=== PATIENT | male | born 1960 | race Two or more races ===

== ENCOUNTER 2024-11-26 05:53 | Emergency (ER) | payer MEDICAID, SELFPAY ==
[2024-11-26 05:54] VITALS: BMI 23.6
[2024-11-26 05:59] VITALS: BP 114/65; PULSE 70; RESP 18; TEMP 36.5; O2SAT 97
[2024-11-26 07:22] LABS: Collection Type, Urine Clean Catch; Squamous Epithelial Cell,Urine 0 /hpf (0-5)
[2024-11-26 07:33] LABS: Bilirubin,Urine Negative (Negative); Blood,Urine Negative (Negative); Clarity,Urine Clear (Clear/Hazy); Color,Urine Lt-Yellow (Lt Yel-Yel); Glucose, Urine 4+ (Negative); Ketones,Urine Negative (Negative); Leukocyte Esterase,Urine Negative (Negative); Nitrite,Urine Negative (Negative); PH,Urine 6.5 (5.0-7.0); Protein,Urine Negative (Neg - Trace); RBC,Urine < 1 /hpf (0-3); Specific Gravity,Urine 1.034 (1.001-1.035); Urobilinogen,Urine Negative mg/dL (0.0-1.0); WBC,Urine 1 /hpf (0-5)
--- NOTE | 2024-11-26 08:04 | EDNOTE_ITS ---
ED Skin Abcess FB-RME/HPI General Chief complaint: Skin/Abscess/Foreign Body Stated complaint: RASH ON GROIN AREA Time Seen by Provider: 11/26/24 06:10 Source: patient Arrival date/time: 11/26/24 05:53 The patient is a 64-year-old male who presents to the emergency department with complaints of irritation at the tip of the penis for the past 3 days. He denies dysuria, hematuria, or urethral discharge. He has no known history of sexually transmitted infections. Past medical history is significant for uncontrolled diabetes and hypertension. He denies fevers, chills, or systemic symptoms. Mode of arrival: ambulatory Limitations: no limitations Related Data Previous Rx's ?Medication ?Instructions ?Recorded insulin glargine 100 unit/mL (3 20 unit (0.2 mL) subcu t QAM #15 mL 07/06/21 mL) subcutaneous pen (Lantus Solostar U-100 Insulin) metformin 1,000 mg tablet 1,000 mg PO BID #60 tabs albuterol sulfate 90 mcg/actuation 1 puff inhalation Q ID PRN 07/22/23 aerosol inhaler shortness of breath or wheez ing #8.5 grams clotrimazole 1 % topical cream 1 applic topical BID 7 days #30 11/26/24 grams Allergies Allergy/AdvReac Type Severity Reaction Status Date / Time No Known Allergies Allergy Unverified 07/03/21 16:42 Review of Systems Review of Systems Systems Reviewed: All systems reviewed, normal except as documented Narrative Review of Systems: Gen: No fever, no chills, no weight loss EYES: No discharge, no visual changes, no pain HEENT: No ear pain, no congestion, no sore throat PULM: No shortness of breath, no cough, no congestion CV: No chest pain, no dyspnea on exertion, no palpitations GI: No nausea, no vomiting, no diarrhea, no pain, no constipation : No frequency, no urgency,? no dysuria, penis pain Musc/skel: No joint pain, no back pain Skin: No rash? Psyc: No hallucinations, no depression Heme/Lymph: No easy bleeding or bruising tendencies Neuro: No weakness, no headache ED Exam General Limitations: Present no limitations General appearance: Present alert and in no apparent distress Head Head exam: Present atraumatic Eye Eye exam: Present normal appearance, PERRL and EOMI ENT ENT exam: Present normal exam, normal oropharynx and mucous membranes moist Neck Neck exam: Present normal inspection, full ROM and trachea midline Chest Chest inspection: Present normal inspection and symmetric chest wall rise Respiratory Respiratory exam: Present normal lung sounds bilaterally Cardiovascular Cardiovascular exam: Present regular rate, normal rhythm and normal heart sounds Abdominal Exam Abdominal exam: Present soft and normal bowel sounds; Absent distention, tenderness or guarding Expanded Exam exam: Present balanitis and other (Erythema noted to the glans penis consistent with mild balanitis. No phimosis or paraphimosis observed. No ulcerations, discharge, or lesions noted. Mild tenderness to palpation.) Extremities Exam Extremities exam: Present normal inspection and full ROM Back Exam Back exam: Present normal inspection and full ROM Neurological Exam Neurological exam: Present alert, oriented X3 and CN II-XII intact Psychiatric Psychiatric exam: Present normal affect and normal mood Skin Skin exam: Present warm, dry, intact and normal color Course Quality Measures none Orders Category Date Time Status UA [Urinalysis] Stat Lab 11/26/24 06:48 Completed Vital Signs Vital signs: Vital Signs Temperature 97.7 F 11/26/24 05:59 Pulse Rate 70 11/26/24 05:59 Respiratory Rate 18 11/26/24 05:59 Blood Pressure 114/65 11/26/24 05:59 Pulse Oximetry (%) 97 11/26/24 05:59 Oxygen Delivery Method Room Air 11/26/24 05:59 Skin / Abscess / Foreign Body Patient data External records reviewed:: [facility] previous records Clinical information provided by:: patient Social determinants that could affect healthcare access:: none Patient has the following chronic illnesses:: no How is presenting disease/condition affected by chronic disease/condition?: no chronic disease Evaluation data The following diagnostics were reviewed and interpreted by me:: lab results Lab and/or radiology exams considered but not ordered:: no Interpretation Summary: ua negative for pyuria Medications / Prescriptions Medications or Prescriptions considered but not ordered:: no Medication administrations:: no Consultations Consultation(s) initiated? (list below): No Diagnosis Skin/Abscess Differential Diagnosis: viral exanthem, urticaria, cellulitis and contact dermatitis Most likely diagnosis given after review of the tests above:: Balanitis penis Admission Indicated Admission indicated?: not indicated Admission Request Was there a request for admission?: No Disposition Plan Disposition Plan: Discharge Discharge Attestation Discharge Attestation: The patient and all family members were given an opportunity to ask questions and understood the discharge instructions. Discharge instructions specifically effects, indications for sooner follow up or return to the emergency department, and the expected course of current diagnosis. Patient condition: Stable Discharge Plan Plan Patient Disposition: HOME (Self Care) Patient condition on transfer: Stable Prescriptions/Referrals Prescriptions/Med Rec: New clotrimazole 1 % cream 1 applic topical BID 7 Days Qty: 30 0RF No Action Lantus Solostar U-100 Insulin 100 unit/mL (3 mL) insulin pen 20 unit subcut QAM Qty: 15 0RF Rx Instructions: Please provide with corresponding needles and caps. metformin 1,000 mg tablet 1,000 mg PO BID Qty: 60 0RF albuterol sulfate 90 mcg/actuation HFA aerosol inhaler 1 puff inhalation QID PRN (Reason: shortness of breath or wheezing) Qty: 8.5 0RF Referrals: No Primary/Family,Physician [Primary Care Provider] - In 1 week Problem List Clinical Impression: Balanitis Patient/Caregiver Discharge Instructions Discharge Activity: activity as tolerated Education Materials: ED Balanitis Additional Instructions: Gently wash with warm water daily and pat dry?avoid harsh soaps or scrubbing. Medications: Use any prescribed creams as directed Avoid irritants: Do not use perfumed soaps, lotions, or powders on the area. Manage blood sugar: Keep diabetes under control, as high blood sugar can contribute to infections and delayed healing. Print Language: Georgian Stand Alone Forms: Sanam Award Info., Patient Portal Info Letter PA/MUSEUM EXHIBIT TECHNICIAN Supervising Physician PA/MUSEUM EXHIBIT TECHNICIAN Supervising Physician: dr soto
[2024-11-26 08:24] VITALS: BP 124/65; PULSE 65; RESP 16; TEMP 36.9; O2SAT 99
== END 2024-11-26 08:26 | disposition home or self-care (01) ==
PROVIDERS: Nurse Practitioner Primary Care; Emergency Provider Emergency Medicine
DX: N48.1 Balanitis (principal)
CPT/HCPCS: 81001; 99283

== ENCOUNTER 2025-05-13 20:08 | Emergency (ER) | payer MEDICAID, SELFPAY ==
[2025-05-13 20:09] VITALS: BMI 27.0
--- NOTE | 2025-05-13 20:22 | EKG_ITS ---
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
[2025-05-13 20:50] VITALS: BP 118/77; PULSE 75; RESP 18; TEMP 36.5; O2SAT 97
--- NOTE | 2025-05-13 20:54 | XR_ITS ---
Examination: CT abdomen with intravenous contrast CT pelvis with intravenous contrast 2-D coronal reconstructions 2-D sagittal reconstructions Date and time of exam:May 13, 2025, 1042 hrs. Indications: Left lower quadrant abdominal pain today CTDI: vol (mGy) 8.6 DLP: (mGycm) 257 Technique: Multiple axial sections of the abdomen and pelvis have been obtained. 64 slice high-resolution scanner used. 3 mm axial sections have been obtained, post intravenous injection 60 cc Isovue-370 2-D sagittal, coronal reconstructions obtained. Low dose protocols were performed. One or more of the following dose reduction techniques were used; automated exposure control, adjustment of the mA and/or KV according to patient size, use of iterative reconstruction technique. Findings: Mild fluid subcapsular to the liver No visualized liver or splenic lesion Gallstones No pancreatic or adrenal mass Minimal perinephric stranding, no renal or ureteral calculi, no hydronephrosis Tiny fat-containing umbilical hernia Normal appendix No bowel obstruction No diverticulitis Distended urinary bladder Significant prostatomegaly, transverse dimension 6 cm Fat-containing inguinal hernias Impression: Mild fluid subcapsular to liver, clinical correlation advised Cholelithiasis, negative for cholecystitis Minimal perinephric stranding No renal or ureteral calculi, no hydronephrosis Normal appendix No diverticulitis Significant prostatomegaly with distended urinary bladder
--- NOTE | 2025-05-13 20:55 | PD.EDADULT ---
ED General RME/HPI General Chief complaint: General Adult/Misc Complain Stated complaint: BODY ACHES, CHEST PRESSURE Time Seen by Provider: 05/13/25 20:53 Arrival date/time: 05/13/25 20:08 RME / HPI RME / HPI narrative: 64-year-old male patient with significant history of diabetes mellitus, came in for evaluation regarding not feeling well. Patient has been having bodyaches, not feeling well, associated with left lower abdominal pain getting worse, for the last 5 days. No vomiting no nausea no diarrhea no constipation. Denies any fever also. Patient denies any cough denies any sore throat. Denies any other complaints no medication was taken prior to ER visit. Related Data Previous Rx's ?Medication ?Instructions ?Recorded insulin glargine 100 unit/mL (3 20 unit (0.2 mL) subcut QAM #15 mL 07/06/21 mL) subcutaneous pen (Lantus Solostar U-100 Insulin) metformin 1,000 mg tablet 1,000 mg PO BID #60 tabs 07/06/21 albuterol sulfate 90 mcg/actuation 1 puff inhalation QID PRN 07/22/23 aerosol inhaler shortness of breath or wheezing #8.5 grams dicyclomine 20 mg tablet 20 mg PO QID PRN abdominal pain 05/13/25 #30 tabs pantoprazole 40 mg tablet,delayed 40 mg PO QDAY #20 tabs 05/13/25 release (Protonix) sodium chloride 1,000 mg soluble 1,000 mg PO QDAY #7 tabs 05/13/25 tablet tamsulosin 0.4 mg capsule (Flomax) 0.4 mg PO QDAY #30 caps 05/13/25 Allergies Allergy/AdvReac Type Severity Reaction Status Date / Time No Known Allergies Allergy Unverified 05/13/25 20:11 Review of Systems Review of Systems Narrative Review of Systems: Review of system reviewed and within normal limits except mentioned in HPI ED Exam Narrative Physical exam: VITAL SIGNS: Reviewed. GENERAL APPEARANCE: Alert and interactive, follows commands, no acute distress, HEAD AND FACE: Non-traumatic. ENT: PERRL, pink conjunctivitis, eyelid no trauma, Mucous membrane moist. NECK: Supple, nontender, no nuchal rigidity. CHEST: No tenderness, no crepitus, no paradoxical movement, no retractions. LUNGS: Clear, well ventilated, symmetric, no rales, no wheezing, no ronchi, no stridor, good breath sounds bilaterally. HEART: Regular rate, regular rhythm, no murmur, no gallops. ABDOMEN: Soft, positive bowel sounds, nondistended, no guarding, left lower quadrant tenderness, no rebound, no masses, RECTAL: Deferred. GENITAL: Deferred. NEUROLOGICAL: Gross motor function intact sensory function intact, Appropriate for age. MUSCULOSKELETAL: low back nontender, full range of motion. EXTREMITIES: Nontender, full range of motion. SKIN: Color pink, dry, no rash, no lacerations, no abrasions, no contusions. LYMPHATICS: Deferred. Course Quality Measures none Orders Category Date Time Status Bedside COVID-19 Antigen Test NOW Care 05/13/25 20:[address] Screening NOW Care 05/13/25 20:54 Active EKG (ED ONLY) *Do not use* NOW Care 05/13/25 20:22 Completed IV [Insert IV] NOW Care 05/13/25 22:[address] abdomen pelvis w con Stat Exams 05/13/25 20:54 Completed EKG (ED Only) Stat Exams 05/13/25 20:22 Draft CBC [CBC] Stat Lab 05/13/25 21:17 Completed CMP [Comprehensive Metabolic Panel] Stat Lab 05/13/25 21:17 Completed Lipase Stat Lab 05/13/25 21:17 Completed UA, C/S IF [Urinalysis, C/S if Indicated] Stat Lab 05/13/25 21:36 Completed Acetaminophen Tab [Tylenol ES Tab] Med 05/13/25 20:54 Discontinued 1,000 mg PO X1 ONE Sodium Chloride 0.9% 1000 ml [Ns] 1,000 ml Med 05/13/25 22:23 Active IV 999 mls/hr Vital Signs Vital signs: Vital Signs Temperature 97.7 F 05/13/25 20:50 Pulse Rate 75 05/13/25 20:50 Respiratory Rate 18 05/13/25 20:50 Blood Pressure 118/77 05/13/25 20:50 Pulse Oximetry (%) 97 05/13/25 20:50 Oxygen Delivery Method Room Air 05/13/25 20:50 Discharge Plan Plan Patient Disposition: HOME (Self Care) Discharge Disposition comment: Stable Prescriptions/Referrals Prescriptions/Med Rec: New dicyclomine 20 mg tablet 20 mg PO QID PRN (Reason: abdominal pain) Qty: 30 0RF pantoprazole [Protonix] 40 mg tablet,delayed release (DR/EC) 40 mg PO QDAY Qty: 20 0RF sodium chloride 1,000 mg tablet,soluble 1,000 mg PO QDAY Qty: 7 0RF tamsulosin [Flomax] 0.4 mg capsule 0.4 mg PO QDAY Qty: 30 0RF No Action Lantus Solostar U-100 Insulin 100 unit/mL (3 mL) insulin pen 20 unit subcut QAM Qty: 15 0RF Rx Instructions: Please provide with corresponding needles and caps. metformin 1,000 mg tablet 1,000 mg PO BID Qty: 60 0RF albuterol sulfate 90 mcg/actuation HFA aerosol inhaler 1 puff inhalation QID PRN (Reason: shortness of breath or wheezing) Qty: 8.5 0RF Referrals: Liliana Fuentes FNP [Primary Care Provider] - In 1 week Problem List Clinical Impression: Abdominal pain, Cholelithiasis, Hyponatremia, Enlarged prostate Patient/Caregiver Discharge Instructions Discharge Activity: activity as tolerated Education Materials: Abdominal Pain, What Are Gallstones Additional Instructions: Thank you for the opportunity for serving you today. You are stable for discharged . You are advised to: Follow-up with your PCP in 1 to 2 days Return to ED for worsening of symptoms Increase oral fluids Take medication as prescribed Your PCP to refer you to a general surgeon for further evaluation regarding your gallstone Please ask your PCP to refer you to a urologist regarding your prostate enlargement Print Language: Bahraini Stand Alone Forms: Sanam Award Info., Patient Portal Info Letter MDM Narrative MDM hospital course (for use when minimal MDM required): 64-year-old male patient with significant history of diabetes mellitus, came in for evaluation regarding not feeling well. Patient has been having bodyaches, not feeling well, associated with left lower abdominal pain getting worse, for the last 5 days. No vomiting no nausea no diarrhea no constipation. Denies any fever also. Patient denies any cough denies any sore throat. Denies any other complaints no medication was taken prior to ER visit. EKG showed sinus rhythm, ventricular rate of 73 bpm, no ST segment elevation or depression noted. CBC showed no leukocytosis. CMP is significant for a sodium of 125. Chloride of 90. Glucose [address] scan of the abdomen pelvis showed Mild fluid subcapsular to liver, clinical correlation advised Cholelithiasis, negative for cholecystitis Minimal perinephric stranding No renal or ureteral calculi, no hydronephrosis Normal appendix No diverticulitis Significant prostatomegaly with distended urinary bladder Patient is not having pain to the right upper quadrant, CT scan also showed mild fluid subscapular to the liver, clinically patient is not having any pain to that area. But however I advised the patient to closely follow-up with PCP or return to emergency room for worsening of symptoms. Patient agrees with the plan. Medication Administration(s) Medication Administration History Discontinued Medications Acetaminophen (Acetaminophen 500 Mg Tablet) 1,000 mg PO X1 ONE Stop: 05/13/25 20:55 Last Admin: 05/13/25 21:52 Dose: 1,000 mg Documented By: AVERY Sodium Chloride (Ns) 1,000 mls @ 999 mls/hr IV .Q1H1M ONE Stop: 05/13/25 23:23 Last Admin: 05/13/25 22:53 Dose: 999 mls/hr Documented By: IZABEL
[2025-05-13 21:21] LABS: Basophils # (Auto) 0.0 Thou/mm3 (0.0-0.2); Basophils % (Auto) 0 % (0-2.5); Eosinophils # (Auto) 0.1 Thou/mm3 (0.0-0.5); Eosinophils % (Auto) 1 % (0-10); Hematocrit 35.2 % (41.0-53.0); Hemoglobin 13.1 g/dL (13.5-16.0); Immature Granulocytes Auto 0.03 Thou/mm3 (0.00-0.00); Lymphocytes # (Auto) 3.3 Thou/mm3 (1.0-4.8); Lymphocytes % (Auto) 34 % (10-50); Mean Corpuscular HGB Conc 37.2 g/dl (31.0-37.0); Mean Corpuscular Hemoglobin 30.0 pg (25.0-35.0); Mean Corpuscular Volume 81 fL (80-100); Monocytes # (Auto) 0.9 Thou/mm3 (0.0-0.8); Monocytes % (Auto) 10 % (0-12); Neutrophils # (Auto) 5.1 Thou/mm3 (1.8-7.7); Neutrophils % (Auto) 54 % (37-80); Nucleated Red Blood Cell # 0.00 Thou/mm3 (0.00-0.00); Nucleated Red Blood Cell % 0 /100 WBC (0); Platelet Count 393 Thou/mm3 (140-440); RDW Standard Deviation 33.3 fL (35.1-43.9); Red Blood Count 4.37 Miln/mm3 (4.50-5.90); White Blood Count 9.5 Thou/mm3 (3.8-10.6)
[2025-05-13] MEDS: ACETAMINOPHEN 500 MG TABLET 1000 MG PO (21:52)
[2025-05-13 21:53] LABS: Alanine Aminotransferase 17 U/L (10-49); Albumin, Serum 4.5 gm/dL (3.4-4.8); Albumin/Globulin Ratio 2.0 (1.2-2.2); Alkaline Phosphatase 53 U/L (46-116); Anion Gap 10 (7-16); Aspartate Amino Transferase 18 U/L (0-34); BUN/Creatinine Ratio 7 Ratio (12-20); Bilirubin,Total 0.9 mg/dL (0.3-1.2); Blood Urea Nitrogen < 5 mg/dL (9-23); Calcium 9.3 mg/dL (8.3-10.6); Calcium (Corrected) 9.3 mg/dL (8.5-10.1); Carbon Dioxide 25.5 mMol/L (20.0-31.0); Chloride 90 mMol/L (98-107); Creatinine (Component) 0.7 mg/dL (0.6-1.3); Estimated Creatinine Clearance 109.4 mL/min (>60); Globulin 2.3 gm/dL (2.3-3.5); Glucose 170 mg/dL (74-106); Lipase 27 U/L (12-53); Osmolality,Calculated 252 (275-295); Potassium 3.4 mMol/L (3.4-5.1); Sodium 125 mMol/L (136-145); Total Protein 6.8 gm/dL (5.7-8.2); eGFR > 60 See Note
[2025-05-13 22:14] VITALS: BP 141/80; PULSE 72; RESP 17; TEMP 37; O2SAT 99
[2025-05-13 22:17] LABS: Collection Type, Urine Clean Catch
[2025-05-13 22:21] LABS: Bilirubin,Urine Negative (Negative); Blood,Urine Negative (Negative); Clarity,Urine Clear (Clear/Hazy); Color,Urine Colorless (Lt Yel-Yel); Culture Indicated,Urine Not Indicated; Glucose, Urine 2+ (Negative); Ketones,Urine Negative (Negative); Leukocyte Esterase,Urine Negative (Negative); Nitrite,Urine Negative (Negative); PH,Urine 6.5 (5.0-7.0); Protein,Urine Negative (Neg - Trace); RBC,Urine < 1 /hpf (0-3); Specific Gravity,Urine 1.005 (1.001-1.035); Squamous Epithelial Cell,Urine < 1 /hpf (0-5); Urobilinogen,Urine Negative mg/dL (0.0-1.0); WBC,Urine < 1 /hpf (0-5)
[2025-05-13] MEDS: SODIUM CHLORIDE 0.9% 1000 ML 1,000 ML 999 ML IV (22:53)
[2025-05-13 23:30] VITALS: BP 138/76; PULSE 82; RESP 16; TEMP 36.8; O2SAT 98
== END 2025-05-13 23:31 | disposition home or self-care (01) ==
PROVIDERS: Nurse Practitioner Family; Emergency Provider Emergency Medicine; PCP Nurse Practitioner Family
DX: K80.20 Calculus of gallbladder without cholecystitis without obstruction (principal); E87.1 Hypo-osmolality and hyponatremia; N40.0 Benign prostatic hyperplasia without lower urinary tract symptoms
CPT/HCPCS: 36415; 74177; 80053; 81001; 83690; 85025; 87811; 93005; 96360; 99284; A4649; J7030; Q9967; A9270

== ENCOUNTER 2025-05-16 11:33 | Observation (INO) | payer MEDICAID, SELFPAY ==
[2025-05-16] VITALS (12 sets, daily range): BP systolic 111–163; BP diastolic 67–90; PULSE 59–85; RESP 12–99; TEMP 36.7–37.1; O2SAT 93–99; BMI 30.5
--- NOTE | 2025-05-16 11:39 | XR_ITS ---
Examination: AP chest single view Technique one AP portable upright chest single view Date and time: May 16, 2025, 1206 hrs., Comparison July 22, 2023 Indications: Stroke protocol Findings: Mild enlargement left ventricle. No aspiration pneumonia. No pulmonary edema. Moderate osteopenia. Impression: Negative for aspiration pneumonia
--- NOTE | 2025-05-16 11:39 | XR_ITS ---
Examination: CTA carotids with intravenous contrast CTA brain, head with intravenous contrast. 2-D sagittal, coronal reconstructions. 3-D reconstructions. Exam date and time: May 16, 2025, 12:10 PM Indications: Stroke alert, onset focal neurologic deficit today CTDI: vol (mGy) 23 DLP: (mGycm) 468 Technique: Multiple CTA axial brain, head carotid images post intravenous contrast injection 75 cc, Isovue-370. 2-D sagittal, coronal reconstructions. 3-D reconstructions, 3-D post processing including vascular maximum intensity projection images. Low dose protocols were performed. One or more of the following dose reduction techniques were used; automated exposure control, adjustment of the mA and/or KV according to patient size, use of iterative reconstruction technique. Findings: No significant common carotid carotid bifurcation or internal carotid artery stenoses in the neck Dominant left vertebral artery in the neck with no critical stenoses Intracranial vertebral arteries basilar artery and posterior cerebral branches fill with no large vessel occlusions 50% stenosis P2 segment left posterior cerebral artery Juxtasellar supraclinoid portions internal carotid arteries fill No cerebral large vessel arterial occlusions involving M1 segments middle cerebral arteries middle cerebral artery trifurcation vessels or anterior cerebral arteries Impression: No significant neck arterial stenoses No cerebral large vessel arterial occlusions or thrombus
--- NOTE | 2025-05-16 11:39 | XR_ITS ---
Examination: CT brain head without contrast. 2-D sagittal coronal reconstructions Date and time of exam:May 16, 2025, 1149 hrs. Indications: Stroke alert, onset focal neurologic deficit today including left facial droop CTDI: vol (mGy):53.7 DLP: (mGycm):1071 Technique: Multiple CT axial sections of the brain have been obtained, 5 mm slice thickness. Contrast has not been administered. 2-D sagittal, coronal reconstructions have been obtained Low dose protocols were performed. One or more of the following dose reduction techniques were used; automated exposure control, adjustment of the mA and/or KV according to patient size, use of iterative reconstruction technique. Findings: No significant ventricular enlargement. Intra-axial or extra-axial hemorrhage density is not seen. No mass effect or midline shift Basal cisterns are not remarkable. Fourth ventricle is midline. Cranial vault intact. Significant left maxillary antral left ethmoid sinusitis Impression: Negative for acute hemorrhage, mass effect or midline shift
--- NOTE | 2025-05-16 11:39 | EKG_ITS ---
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
--- NOTE | 2025-05-16 11:40 | PD.EDADULT ---
ED General RME/HPI General Chief complaint: Neuro Symptoms/Deficit Stated complaint: RIGHT MOUTH DROOP AT 1055, NORMAL NOW.FACE HOT Time Seen by Provider: 05/16/25 11:38 Arrival date/time: 05/16/25 11:33 CC: Right sided facial drop droop lasting approximately 5 to 10 seconds. HPI onset at 10:55 AM. Then mostly spontaneously resolved. Still feeling hot the side of the face complaining of right sided mild blurred vision no prior history of similar events. History of diabetes hypertension. Related Data Previous Rx's ?Medication ?Instructions ?Recorded insulin glargine 100 unit/mL (3 20 unit (0.2 mL) subcut QAM #15 mL 07/06/21 mL) subcutaneous pen (Lantus Solostar U-100 Insulin) metformin 1,000 mg tablet 1,000 mg PO BID #60 tabs 07/06/21 dicyclomine 20 mg tablet 20 mg PO QID PRN abdominal pain 05/13/25 #30 tabs pantoprazole 40 mg tablet,delayed 40 mg PO QDAY #20 tabs 05/13/25 release (Protonix) sodium chloride 1,000 mg soluble 1,000 mg PO QDAY #7 tabs 05/13/25 tablet tamsulosin 0.4 mg capsule (Flomax) 0.4 mg PO QDAY #30 caps 05/13/25 Allergies Allergy/AdvReac Type Severity Reaction Status Date / Time No Known Allergies Allergy Unverified 05/16/25 11:39 Review of Systems Review of Systems Narrative Review of Systems: GEN: No fever, no chills, no weight loss EYES: No discharge, no visual changes, no pain HEENT: No ear pain, no congestion, no sore throat PULM: No shortness of breath, no cough, no congestion CV: No chest pain, no dyspnea on exertion, no palpitations GI: No nausea, no vomiting, no diarrhea, no pain, no constipation : No frequency, no urgency, no dysuria MUSC/SKEL: No joint pain, no back pain SKIN: No rash PSYCH: No hallucinations, no depression HEME/LYMPH: No easy bleeding or bruising tendencies NEURO: No weakness, no headache Past Medical History Past Medical History CARDIAC: Positive Cardiac Disorders; Negative Congestive Heart Failure RESPIRATORY: Negative Chronic Obstructive Pulmonary Disease (COPD) or Asthma GENITOURINARY: Negative Renal Disease ENDOCRINE: Positive Diabetes Mellitus Type 2; Negative Diabetes Mellitus Type 1 HEMATOLOGIC: Negative Sickle Cell Disease Social History SMOKING STATUS: Never smoker SUBSTANCE USE: does not use ED Exam Narrative Physical exam: [General: Obese not in any acute distress Head normocephalic HEENT: Within acceptable limits Neck is supple nontender Chest equal chest rise nontender to palpation Respiratory: Clear to auscultation no wheezes crackles or rubs CV: Rate rhythm is regular no murmurs rubs or clicks Abdomen is distended secondary to body habitus soft nontender no masses positive bowel sounds all 4 quadrants Back: No CVA tenderness no spinous process tenderness from cervical spine thoracic and lumbar spine Skin: Intact no petechiae rash induration ulceration or crepitus Extremities: Moving all extremity against resistance cap refill less than 2 seconds neurosensory intact Neuro: Awake alert oriented x3 Glascow coma 15 no focal deficits] cranial nerves II through XII grossly intact. NIH score of 0 Course Course Course Narrative: Review the laboratory results show no acute finding requires emergent or immediate intervention. Teleneurologist states patient should be admitted for TIA started on 300 of Plavix and admitted for workup. Patient is in agreement with this plan. Patient's case presented to resident for Dr. Tomlinson, who agrees to accept the patient for admission. Quality Measures none Orders Category Date Time Status Bedside Blood Glucose NOW Care 05/16/25 11:39 Active Bottle Tester NOW Care 05/16/25 11:39 Active Continuous Pulse Oximetry NOW Care 05/16/25 11:39 Completed EKG (ED ONLY) *Do not use* NOW Care 05/16/25 11:39 Completed In and Out Catheter NEEDED Care 05/16/25 11:39 Active Insert IV NOW Care 05/16/25 11:39 Active NIH Stroke Scale now Care 05/16/25 11:39 Active NPO NOW Care 05/16/25 11:39 Active Nurse Swallow Screen x1 Care 05/16/25 11:39 Active Consult to Neurology / Tele-Neurology Routine Cons 05/16/25 11:[address] angio stroke protocol Stat Exams 05/16/25 11:[address] stroke protocol Stat Exams 05/16/25 11:39 Completed EKG (ED Only) Stat Exams 05/16/25 11:39 Draft XR chest 1V portable Stat Exams 05/16/25 11:39 Taken CBC Stat Lab 05/16/25 11:43 Completed Comprehensive Metabolic Panel Stat Lab 05/16/25 11:43 Completed Drug Screen,Urine Stat Lab 05/16/25 12:21 Completed Magnesium Stat Lab 05/16/25 11:43 Completed Partial Thromboplastin Time Stat Lab 05/16/25 11:43 Completed Prothrombin Time with INR Stat Lab 05/16/25 11:43 Completed Troponin I Stat Lab 05/16/25 11:43 Completed Urinalysis, C/S if Indicated Stat Lab 05/16/25 12:20 Received Clopidogrel [Plavix] Med 05/16/25 11:58 Discontinued 300 mg PO X1 ONE Labetalol IV [Trandate IV] Med 05/16/25 11:39 Active 10 mg IVP Q15M PRN Ondansetron Inj [Zofran Inj] Med 05/16/25 11:39 Active 4 mg IVP Q4HR PRN Oxygen Delivery NOW RT 05/16/25 11:39 Active Vital Signs Vital signs: Vital Signs Temperature 98.4 F 05/16/25 11:42 Pulse Rate 85 05/16/25 11:42 Respiratory Rate 18 05/16/25 11:42 Blood Pressure 111/78 05/16/25 11:42 Pulse Oximetry (%) 98 05/16/25 11:42 Oxygen Delivery Method Room Air 05/16/25 11:42 Discharge Plan Plan Patient Disposition: Other Care w/in Hosp ([facility]) Patient condition on transfer: Stable Prescriptions/Referrals Prescriptions/Med Rec: No Action insulin glargine [Lantus Solostar U-100 Insulin] 100 unit/mL (3 mL) insulin pen 20 unit subcut QAM Qty: 15 0RF Rx Instructions: Please provide with corresponding needles and caps. metformin 1,000 mg tablet 1,000 mg PO BID Qty: 60 0RF dicyclomine 20 mg tablet 20 mg PO QID PRN (Reason: abdominal pain) Qty: 30 0RF pantoprazole [Protonix] 40 mg tablet,delayed release (DR/EC) 40 mg PO QDAY Qty: 20 0RF sodium chloride 1,000 mg tablet,soluble 1,000 mg PO QDAY Qty: 7 0RF tamsulosin [Flomax] 0.4 mg capsule 0.4 mg PO QDAY Qty: 30 0RF Problem List Clinical Impression: Brain TIA Patient/Caregiver Discharge Instructions Print Language: Samoan Stand Alone Forms: Sanam Award Info., Patient Portal Info Letter HOANG/PARRIS Supervising Physician ARYA Supervising Physician: Horace Montoya ENP [facility] Clinical Information Provided by: patient Medical Records reviewed [facility] Meds/Rx considered, not ordered None Labs/Rad/Tests considered, not ordered None Chronic Illness/Social Conditions Explain: Diabetes hypertension EKG Interpretation EKG #1: EKG Interpretation: EKG performed at 1227 shows a ventricular rate of 70 UT interval 168 QRS of 92 QTc of 406 is normal sinus rhythm. Labs Lab(s) Interpretation(s): CBC shows no acute leukocytosis anemia thrombocytopenia Coags within acceptable limits Sodium at 131 chloride of 97 glucose at 198. No other electrolyte imbalances no renal impairment no transaminitis or T. bili elevation. Troponin is negative Medication Administration(s) Medication Administration History Labetalol HCl (Labetalol Inj 5 Mg/Ml Vial 20 Ml) 10 mg IVP Q15M PRN PRN Reason: HYPER Stop: 05/16/25 13:40 Ondansetron HCl (Ondansetron Inj 2 Mg/Ml Inj 2 Ml) 4 mg IVP Q4HR PRN PRN Reason: NAUSEA OR VOMITING Stop: 06/15/25 11:38 Discontinued Medications Clopidogrel Bisulfate (Clopidogrel Bisulfate 75 Mg Tablet) 300 mg PO X1 ONE Stop: 05/16/25 11:59 Last Admin: 05/16/25 12:12 Dose: 300 mg Documented By: BY
--- NOTE | 2025-05-16 11:56 | PD.TNEURO ---
Tele Neuro Consultation Consultation Date 05/16/25 Most Recent Vital Signs Last Vital Signs Temp 98.4 F 05/16/25 11:42 Pulse 85 05/16/25 11:42 Resp 18 05/16/25 11:42 BP 111/78 05/16/25 11:42 Pulse Ox 98 05/16/25 11:42 O2 Del Method Room Air 05/16/25 11:42 Consultation Narrative [facility] Tele[facility]urology Consult Services Patient Name:???BRANDI ORTIZ Date of :???1960 Identification Number:??? Date of Service:???05/16/2025 11:40:14 Diagnosis:?G45.9 - Transient cerebral ischemic attack, unspecified Impression: ?64 y/o man with h/o HTN, DM and hyperlipidemia who presents to the ED with transient right facial droop at 1055. NIHSS 0 now. Admit for TIA evaluation Our recommendations are outlined below. Recommendations: ? Stroke/Telemetry Floor ? Neuro Checks ? Bedside Swallow Eval ? DVT Prophylaxis ? IV Fluids, Normal Saline ? Head of Bed 30 Degrees ? Euglycemia and Avoid Hyperthermia (PRN Acetaminophen) ? Bolus with Clopidogrel 300 mg bolus x1 and initiate dual antiplatelet therapy with Aspirin 81 mg daily and Clopidogrel 75 mg daily ? Antihypertensives PRN if Blood pressure is greater than 220/120 or there is a concern for End organ damage/contraindications for permissive HTN. If blood pressure is greater than 220/120 give labetalol PO or IV or Vasotec IV with a goal of 15% reduction in BP during the first 24 hours. Sign Out: ? Discussed with Emergency Department Provider Advanced Imaging: Advanced Imaging Deferred because: Advanced Imaging not obtained at this time. Reason: Case discussed with Dr. Montoya. NIHSS 0. Low suspicion for LVO given the clinical presentation and current clinical exam. Can reconsider advanced neuroimaging if patient's symptoms recur or worsen or develops new symptoms. Metrics: Last Known Well: 05/16/2025 10:55:00 Dispatch Time: 05/16/2025 11:40:14 Arrival Time: 05/16/2025 11:40:00 Initial Response Time: 05/16/2025 11:42:39Symptoms: transient right facial droop. Initial patient interaction: 05/16/2025 11:49:42 NIHSS Assessment Completed: 05/16/2025 11:53:34Patient is not a candidate for Thrombolytic. Thrombolytic Medical Decision: 05/16/2025 11:53:34Patient was not deemed candidate for Thrombolytic because of following reasons: Resolved symptoms . CT Head: I personally reviewed all the CT images that were available to me and it showed: No acute hemorrhage. No large territory acute ischemic stroke. Primary Provider Notified of Diagnostic Impression and Management Plan on: 05/16/2025 11:57:08 History of Present Illness:Patient is a 64 year old Male. Patient was brought by private transportation with symptoms of transient right facial droop. 64 y/o man with h/o HTN, DM and hyperlipidemia who presents to the ED with transient right facial droop at 1055. Emergent telestroke consult requested. Symptoms resolved after about a minute. bridge engineer used. On ASA. NIHSS 0. Patient states he feels normal at this time. CT brain reviewed and case discussed with the ED attending (Dr. Montoya). Past Medical History: Other PMH:? as per HPI Medications: No Anticoagulant use? Antiplatelet use:?Yes?ASA Reviewed EMR for current medications Allergies:? NKDA Social History: Smoking: No Alcohol Use: Former Drug Use: No Family History: There is no family history of premature cerebrovascular disease pertinent to this consultation ROS : 14 Points Review of Systems was performed and was negative except mentioned in HPI. Past Surgical History: There Is No Surgical History Contributory To Today?s Visit Examination: BP(111/78),?Pulse(85),?Blood Glucose(223) 1A: Level of Consciousness - Alert; keenly responsive?+ 0 1B: Ask Month and Age - Both Questions Right?+ 0 1C: Blink Eyes & Squeeze Hands - Performs Both Tasks?+ 0 2: Test Horizontal Extraocular Movements - Normal?+ 0 3: Test Visual Raza - No Visual Loss?+ 0 4: Test Facial Palsy (Use Grimace if Obtunded) - Normal symmetry?+ 0 5A: Test Left Arm Motor Drift - No Drift for 10 Seconds?+ 0 5B: Test Right Arm Motor Drift - No Drift for 10 Seconds?+ 0 6A: Test Left Leg Motor Drift - No Drift for 5 Seconds?+ 0 6B: Test Right Leg Motor Drift - No Drift for 5 Seconds?+ 0 7: Test Limb Ataxia (FNF/Heel-Nassar) - No Ataxia?+ 0 8: Test Sensation - Normal; No sensory loss?+ 0 9: Test Language/Aphasia - Normal; No aphasia?+ 0 10: Test Dysarthria - Normal?+ 0 11: Test Extinction/Inattention - No abnormality?+ 0 NIHSS Score:?0 NIHSS Free Text :?Gait - stands up independently and ambulates unassisted without any difficulty Pre-Morbid Modified Bethel Scale: 0 Points = No symptoms at all Spoke with :?Dr. Montoya This consult was conducted in real time using interactive audio and video technology. Patient was informed of the technology being used for this visit and agreed to proceed. Patient located in hospital and provider located at home/office setting. Patient is being evaluated for possible acute neurologic impairment and high probability of imminent or life-threatening deterioration. I spent total of 20 minutes providing care to this patient, including time for face to face visit via telemedicine, review of medical records, imaging studies and discussion of findings with providers, the patient and/or family. Dr Aaron Rolle [facility] For Inpatient follow-up with [facility] physician please call [facility] at . As we are not an outpatient service for any post hospital discharge needs please contact the hospital for assistance. If you have any questions for the [facility] physicians or need to reconsult for clinical or diagnostic changes please contact us via [facility] at . Signature :Renetta Rolle
--- NOTE | 2025-05-16 12:00 | PC.NURSE ---
PER DR. EVELYN HOLLINGSWORTH, TELENEUROLOGIST, PT'S NIHSS SCORE IS 0 AND IS NOT A CANDIDATE FOR THROMBOLYTICS AT THIS TIME.
[2025-05-16 12:05] LABS: Basophils # (Auto) 0.0 Thou/mm3 (0.0-0.2); Basophils % (Auto) 0 % (0-2.5); Eosinophils # (Auto) 0.1 Thou/mm3 (0.0-0.5); Eosinophils % (Auto) 1 % (0-10); Hematocrit 36.9 % (41.0-53.0); Hemoglobin 13.7 g/dL (13.5-16.0); Immature Granulocytes Auto 0.02 Thou/mm3 (0.00-0.00); Lymphocytes # (Auto) 2.8 Thou/mm3 (1.0-4.8); Lymphocytes % (Auto) 36 % (10-50); Mean Corpuscular HGB Conc 37.1 g/dl (31.0-37.0); Mean Corpuscular Hemoglobin 30.0 pg (25.0-35.0); Mean Corpuscular Volume 81 fL (80-100); Monocytes # (Auto) 0.6 Thou/mm3 (0.0-0.8); Monocytes % (Auto) 8 % (0-12); Neutrophils # (Auto) 4.2 Thou/mm3 (1.8-7.7); Neutrophils % (Auto) 54 % (37-80); Nucleated Red Blood Cell # 0.00 Thou/mm3 (0.00-0.00); Nucleated Red Blood Cell % 0 /100 WBC (0); Platelet Count 413 Thou/mm3 (140-440); RDW Standard Deviation 34.2 fL (35.1-43.9); Red Blood Count 4.56 Miln/mm3 (4.50-5.90); White Blood Count 7.7 Thou/mm3 (3.8-10.6)
[2025-05-16] MEDS: CLOPIDOGREL BISULFATE 75 MG TABLET 300 MG PO (12:12)
[2025-05-16 12:18] LABS: INR 1.0 (0.9-1.3); Partial Thromboplastin Time 26.2 Seconds (22.0-36.0); Prothrombin Time 10.4 Seconds (9.0-12.2)
[2025-05-16 12:22] LABS: Alanine Aminotransferase 17 U/L (10-49); Albumin, Serum 4.1 gm/dL (3.4-4.8); Albumin/Globulin Ratio 1.8 (1.2-2.2); Alkaline Phosphatase 68 U/L (46-116); Anion Gap 11 (7-16); Aspartate Amino Transferase 17 U/L (0-34); BUN/Creatinine Ratio 6 Ratio (12-20); Bilirubin,Total 0.6 mg/dL (0.3-1.2); Blood Urea Nitrogen < 5 mg/dL (9-23); Calcium 8.9 mg/dL (8.3-10.6); Calcium (Corrected) 8.9 mg/dL (8.5-10.1); Carbon Dioxide 22.8 mMol/L (20.0-31.0); Chloride 97 mMol/L (98-107); Creatinine (Component) 0.8 mg/dL (0.6-1.3); Estimated Creatinine Clearance 98.3 mL/min (>60); Globulin 2.3 gm/dL (2.3-3.5); Glucose 198 mg/dL (74-106); Magnesium 1.7 mg/dL (1.6-2.6); Osmolality,Calculated 265 (275-295); Potassium 3.8 mMol/L (3.4-5.1); Sodium 131 mMol/L (136-145); Total Protein 6.4 gm/dL (5.7-8.2); Troponin I < 0.020 ng/mL (0.0-0.045); eGFR > 60 See Note
[2025-05-16 12:28] LABS: Collection Type, Urine Clean Catch; Squamous Epithelial Cell,Urine 0 /hpf (0-5)
[2025-05-16 12:54] LABS: Bilirubin,Urine Negative (Negative); Blood,Urine Negative (Negative); Clarity,Urine Clear (Clear/Hazy); Color,Urine Colorless (Lt Yel-Yel); Culture Indicated,Urine Not Indicated; Glucose, Urine 2+ (Negative); Ketones,Urine Negative (Negative); Leukocyte Esterase,Urine Negative (Negative); Nitrite,Urine Negative (Negative); PH,Urine 6.5 (5.0-7.0); Protein,Urine Negative (Neg - Trace); RBC,Urine < 1 /hpf (0-3); Specific Gravity,Urine 1.011 (1.001-1.035); Urobilinogen,Urine Negative mg/dL (0.0-1.0); WBC,Urine < 1 /hpf (0-5)
[2025-05-16 13:05] LABS: Amphetamine/Methamp Scrn,U Negative (Negative); Barbiturate Screen,Urine Negative (Negative); Benzodiazepines Screen,Urine Negative (Negative); Benzoylecgonine Screen, Ur Negative (Negative); Fentanyl Screen,Urine Negative (Negative); Opiate Screen,Urine Positive (Negative); THC Screen,Urine Negative (Negative)
--- NOTE | 2025-05-16 13:58 | PC.NURSE ---
MD admiting DR blake , due to house supp call, patient needs to be upgraded to willie chávez Md to change order
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
[2025-05-16 15:21] LABS: Troponin I < 0.020 ng/mL (0.0-0.045)
--- NOTE | 2025-05-16 16:10 | ECHO_ITS ---
Transthoracic Echo Report Ht (in): 66 Wt (lb): 189 Exam Location: [facility] Status: Inpatient Optimization Manager: Kristina Candelaria Indications: Procedure Performed: BP: 150 / 94 HR: 57 MEASUREMENTS (Male / Female) Normal Values 2D ECHO LV Diastolic Diameter PLAX 4.9 cm 4.2 - 5.9 / 3.9 - 5.3 cm LV Systolic Diameter PLAX 3.0 cm IVS Diastolic Thickness 1.0 cm 0.6 - 1.0 / 0.6 - 0.9 cm LVPW Diastolic Thickness 1.0 cm 0.6 - 1.0 / 0.6 - 0.9 cm LV Relative Wall Thickness 0.4 LVOT Diameter 2.0 cm LA Volume Index 15.6 cm?/m? 16 - 28 cm?/m? Ascending Aorta Diameter 2.8 cm M-MODE AV Cusp Separation MM 1.7 cm DOPPLER AV Peak Velocity 155.0 cm/s AV Peak Gradient 9.6 mmHg AV Mean Gradient 4.0 mmHg AV Velocity Time Integral 30.1 cm LVOT Peak Velocity 111.0 cm/s LVOT Peak Gradient 4.9 mmHg LVOT Velocity Time Integral 21.3 cm LVOT Cardiac Index 1883.9 cm?/min?m? AV Area Cont Eq vti 2.2 cm? AV Area Cont Eq pk 2.2 cm? MV Area PHT 3.3 cm? Mitral E Point Velocity 53.1 cm/s Mitral A Point Velocity 62.0 cm/s Mitral E to A Ratio 0.9 LV E' Lateral Velocity 10.8 cm/s Mitral E to LV E' Lateral Ratio 4.9 LV E' Septal Velocity 5.1 cm/s Mitral E to LV E' Septal Ratio 10.4 TR Peak Velocity 167.7 cm/s TR Peak Gradient 11.2 mmHg PV Peak Velocity 118.0 cm/s PV Peak Gradient 5.6 mmHg FINDINGS Left Ventricle Normal left ventricular size, wall thickness, systolic function with no obvious regional wall motion abnormalities.There is grade I diastolic dysfunction of the left ventricle (impaired relaxation pattern). The ejection fraction is visually estimated at 60 %. Right Ventricle The right ventricle is normal in size and systolic function. Left Atrium The left atrium is normal by two-dimensional, color flow and Doppler imaging with no structural abnormalities, no thrombus formation present. Right Atrium The right atrium is normal by two-dimensional imaging, color flow and Doppler imaging with no structural abnormalities, no thrombus formation present. Atrial Septum No patent foramen ovale demonstrated by agitated saline injection. Aorta The aorta is normal by two-dimensional, color flow and Doppler interrogation. Mitral Valve The mitral valve is normal by two-dimensional, color flow and Doppler interrogation. Trace mitral regurgitation. Aortic Valve The aortic valve is trileaflet and normal by two-dimensional, color flow and Doppler interrogation. There is no significant aortic valve regurgitation. Tricuspid Valve The tricuspid valve is normal by two-dimensional, color flow and Doppler interrogation. There is trace tricuspid valve regurgitation. Pulmonic Valve The pulmonic valve is not well visualized. There is no significant pulmonic valve regurgitation. Vessels The pulmonary artery appears normal. The inferior vena cava pulmonary and hepatic veins appear normal. Pericardium There is a trivial pericardial effusion without cardiac tamponade. CONCLUSIONS Indication: bubble study Normal left ventricular size and function.Grade I diastolic dysfunction. Approximate ejection fraction is 55- 60%. Normal rightventricular size and function. Trace mitral and trace tricuspid regurgitation Negative bubble study No evidence of PFO or shunts Zulay Gomez (Electronically Signed) Final Date: 17 May 2025 17:56
[2025-05-16] MEDS: POLYETHYLENE GLYCOL 17 GM PACKET PO (17:47)
[2025-05-16] MEDS: INSULIN LISPRO (AdmeLOG) 1 UNIT/0.01 ML UNIT SC (20:15)
[2025-05-16] MEDS: ATORVASTATIN CALCIUM 20 MG TABLET 40 MG PO (20:22)
[2025-05-17] VITALS: BP 161/88; PULSE 69; PULSE 73; TEMP 36.8; O2SAT 98
--- NOTE | 2025-05-17 | XR_ITS ---
Examinations: MRI Brain without intravenous contrast. MRA brain without intravenous contrast. MRA carotids without intravenous contrast 3-D vascular reconstructions Date and time of exam: May 17, 2025, 0813 hours Indication: CT stroke alert May 16, 2025, onset focal neurologic deficit including right-sided facial droop blurred vision Technique: Multiple axial and sagittal images of the brain have been obtained MRA brain carotid images without contrast obtained, including 3-D postprocessing, vascular maximum intensity projection images Findings: Sellaturc[place] is not enlarged. The optic chiasm and infundibular stalk are not remarkable. Prepontine and interpeduncular cisterns are not enlarged. No localized enlargement of the medulla or v[place]. Fourth ventricle and cerebellar tonsils normal in position. Subacute hemorrhage is not seen. Fourth ventricle is midline. Mass in the cerebellopontine angle region is not evident. 7th and 8th nerve complexes exhibits symmetry. Globes are symmetrical with no retro-orbital mass. Increased white matter signal noted, scattered punctate foci increased signal in the white matter Diffusion-weighted images demonstrate no focus of restricted diffusion Mass-effect upon the ventricular system is not identified. Frontal ethmoid sinusitis MRA carotid images no significant carotid stenoses. MRA brain images no large vessel occlusions Impression: Negative for acute hemorrhage mass effect or midline shift No acute infarct Scattered punctate foci increased signal in the white matter, differential would include accelerated chronic microvascular white matter disease, demyelinating disease Recommend neurology consultation and correlation with clinical findings
[2025-05-17 00:16] VITALS: BP 161/88; PULSE 69; RESP 16; O2SAT 96
--- NOTE | 2025-05-17 01:42 | XR_ITS ---
Examination: Abdomen sonogram, Limited Date and time of exam: May 17, 2025, 0150 hrs. Indications: Upper abdominal pain today Technique: Real-time hernandez scale transabdominal sonographic images of the upper abdomen obtained. Findings: Cholelithiasis, normal gallbladder wall 0.2 cm Common bile duct 0.4 cm Pancreatic head 2.7 cm Liver 15.4 cm no focal liver lesions Normal hepatopedal portal venous flow Patent IVC Impression: Cholelithiasis, negative for cholecystitis
[2025-05-17 04:00] VITALS: BP 150/94; PULSE 62; PULSE 64; RESP 11; TEMP 36.8; O2SAT 96
[2025-05-17 05:39] LABS: Basophils # (Auto) 0.1 Thou/mm3 (0.0-0.2); Basophils % (Auto) 1 % (0-2.5); Eosinophils # (Auto) 0.2 Thou/mm3 (0.0-0.5); Eosinophils % (Auto) 2 % (0-10); Hematocrit 35.0 % (41.0-53.0); Hemoglobin 12.8 g/dL (13.5-16.0); Immature Granulocytes Auto 0.04 Thou/mm3 (0.00-0.00); Lymphocytes # (Auto) 3.3 Thou/mm3 (1.0-4.8); Lymphocytes % (Auto) 34 % (10-50); Mean Corpuscular HGB Conc 36.6 g/dl (31.0-37.0); Mean Corpuscular Hemoglobin 29.9 pg (25.0-35.0); Mean Corpuscular Volume 82 fL (80-100); Monocytes # (Auto) 0.8 Thou/mm3 (0.0-0.8); Monocytes % (Auto) 9 % (0-12); Neutrophils # (Auto) 5.3 Thou/mm3 (1.8-7.7); Neutrophils % (Auto) 55 % (37-80); Nucleated Red Blood Cell # 0.00 Thou/mm3 (0.00-0.00); Nucleated Red Blood Cell % 0 /100 WBC (0); Platelet Count 387 Thou/mm3 (140-440); RDW Standard Deviation 35.1 fL (35.1-43.9); Red Blood Count 4.28 Miln/mm3 (4.50-5.90); White Blood Count 9.8 Thou/mm3 (3.8-10.6)
[2025-05-17 05:48] LABS: Glucose Estimated Average 140 mg/dL (80-131); Hemoglobin A1C 6.5 % Hgb (4.8-6.0)
[2025-05-17 06:11] LABS: Alanine Aminotransferase 15 U/L (10-49); Albumin, Serum 3.9 gm/dL (3.4-4.8); Albumin/Globulin Ratio 1.9 (1.2-2.2); Alkaline Phosphatase 55 U/L (46-116); Anion Gap 9 (7-16); Aspartate Amino Transferase 15 U/L (0-34); BUN/Creatinine Ratio 6 Ratio (12-20); Bilirubin,Total 0.6 mg/dL (0.3-1.2); Blood Urea Nitrogen < 5 mg/dL (9-23); Calcium 9.0 mg/dL (8.3-10.6); Calcium (Corrected) 9.1 mg/dL (8.5-10.1); Carbon Dioxide 27.9 mMol/L (20.0-31.0); Cardiac Risk Estimate 3.1 RATIO (4.0-6.7); Chloride 98 mMol/L (98-107); Cholesterol 119 mg/dL (132-200); Creatinine (Component) 0.8 mg/dL (0.6-1.3); Estimated Creatinine Clearance 98.3 mL/min (>60); Globulin 2.1 gm/dL (2.3-3.5); Glucose 102 mg/dL (74-106); HDL Cholesterol 39 mg/dL (40-60); LDL Cholesterol,Calculated 58 mg/dL (0-130); Magnesium 1.9 mg/dL (1.6-2.6); Osmolality,Calculated 267 (275-295); Phosphorous 4.5 mg/dL (2.4-5.1); Potassium 3.5 mMol/L (3.4-5.1); Sodium 135 mMol/L (136-145); Total Protein 6.0 gm/dL (5.7-8.2); Triglycerides 109 mg/dL (30-150); eGFR > 60 See Note
[2025-05-17 08:00] VITALS: BP 150/72; PULSE 68; RESP 19; TEMP 36.8; O2SAT 96
--- NOTE | 2025-05-17 09:12 | PC.SS ---
Update: Patient is pending an MRI and Echo.
[2025-05-17] MEDS: TAMSULOSIN HCL 0.4 MG CAPSULE PO (09:13)
[2025-05-17] MEDS: ASPIRIN EC 81 MG TABEC PO (09:14)
[2025-05-17] MEDS: INSULIN DEGLUDEC 5 UNIT/0.05 ML (PER 5 UNITS) 20 UNIT SC (09:14)
[2025-05-17] MEDS: CLOPIDOGREL BISULFATE 75 MG TABLET PO (09:14)
--- NOTE | 2025-05-17 09:44 | PCS.ST ---
Speech referral for stroke r/o. No dysphagia. Tolerating diet. Independent communication skills. No formal speech services warranted at this time.
[2025-05-17] MEDS: GABAPENTIN 300 MG CAPSULE PO (11:47)
[2025-05-17 12:00] VITALS: BP 144/80; PULSE 66; RESP 18; TEMP 36.9; O2SAT 98
--- NOTE | 2025-05-17 13:17 | PC.SS ---
COOPERATIVE EXTENSION AGENT conducted bedside contact with the patient conduct initial assessment and to discuss discharge planning.? COOPERATIVE EXTENSION AGENT utilized sailing instructor to assist with discussion.? Patient is primarily a Slovenian speaker. ?Patient confirmed demographic information.? Patient resides at home with son, Brent Acevedo .? Patient does not utilize DME to assist with ambulation.? Patient does not utilize home oxygen.? Patient describes the ability to complete ADL?s independently.? Patient identified son, Brent Acevedo; as medical surrogate decision maker.? Patient?s PCP is Liliana Fuentes.? Patient does not participate with dialysis.? Patient does not possess any specialty providers.? Patient utilizes [email or web address], [email or web address]; for medication services.? Plan is for the patient to return home at the time of discharge.? Physical therapy recommending outpatient PT.? Per PT, patient will require referral submittal from PCP.? COOPERATIVE EXTENSION AGENT reminded patient of need to request outpatient PT referral from PCP at follow up appointment.? Patient acknowledged need to obtain PT referral from PCP.? Family will provide transportation on behalf of the patient.? No further discharge needs identified by the patient.? No further intervention required at this time, social service agency director will be available to address any further concerns.? Next of Kin: Brent Acevedo D/C Plan: Home
--- NOTE | 2025-05-17 13:41 | PC.PT ---
PT eval only. Patient was xI with bed mobility, transfers, and ambulation. Patient is safe to ambulate to the bathroom and in the halls with 1 family member. RN made aware.
--- NOTE | 2025-05-17 14:22 | PC.SS ---
Rounding Note: Neurology recommendations are pending. Plan is to possibly d/c today.
[2025-05-17 16:00] VITALS: BP 133/66; PULSE 78; PULSE 99; RESP 18; TEMP 36.6; O2SAT 98
--- NOTE | 2025-05-17 17:24 | PD.RESDS ---
Planned Discharge Date 05/17/25 DS: Providers Provider Date of admission: 05/16/25 13:48 Primary care physician: PARRIS Gentile Admitting Provider: Melody Tomlinson MD Attending Provider on Admission: Melody Tomlinson MD Consults: 05/16/25 11:39 Consult to Neurology / Tele-Neurology Routine Comment: Consulting Provider: [facility] 05/16/25 13:58 Consult to Neurology / Tele-Neurology Stat Comment: Consulting Provider: Nathan Willis 05/16/25 14:10 Referral Physical Therapy Routine Comment: Physician Instructions: Attending Provider on DC: Reynaldo Sofia MD Discharging Provider: Reynaldo Sofia MD DS: Diagnosis Problem List Completed Was Problem List Reviewed/Reconciled?: Yes Hospital Course Hospital Course Hospital course: 64-year-old male with past medical history of alcohol use disorder, HTN, HLD, and diabetes, presented to the hospital on 05/16/2025 due to right facial droop. Patient noted that this morning he could not move right side of his face, felt headache, hot flashes, and tingling all over his body. In the ED, patient was normotensive, regular heart rate, regular respiratory rate, afebrile satting 98 on room air. Stroke alert was initiated in the ED with teleneurology consultation, NIH score was 0. Labs are pertinent for mild hyponatremia, UA was negative for any signs of infection but U tox positive for opioids. Chest x-ray showed mild lodgment of the left ventricle, no aspiration pneumonia, no pulmonary edema but moderate osteopenia. CT head was negative and CT of the head and neck was also negative. Brain MRI did not show any acute infarct but there was scattered punctate foci with increased signal in the white matter. Neurology was consulted and recommended continuing aspirin and statin and to follow-up outpatient. Patient also reported lower extremity pain with tingling sensation likely secondary to neuropathy from diabetes; moreover, patient will be discharged stable with the following strict instructions. Please take Aspirin 81mg by mouth daily and atorvastatin 40mg tablet by mouth daily for TIA Take Percocet 5-325mg as needed up to three times a day for neuropathy - follow-up with PCP for pain management Please follow-up with Dr. Willis (Neurology) within 1-2 weeks after discharge Please follow-up with your PCP within 1 week of discharge or follow-up at the [facility] [address] [place] [address] Ask your PCP to refer you to a therapist for depressive mood and continue anti-depressant as prescribed If your symptoms worsen or if you develop new chest pain, shortness of breath, dizziness or loss of consciousness - please come back to the ED immediately. Hospital Diagnosis: #TIA #Cholelithiasis #Prostamegaly #Non-insulin dependent type 2 diabetes #Diabetic Neuropathy #Hyperlipidemia Reynaldo Sofia DO PGY-2 Internal Medicine - [facility] Status at Discharge Overall status at discharge: patient is progressing back to baseline Time Spent with Patient Time attestation: Total time spent providing and/or coordinating discharge services: 45 min Time spent: Greater than 30 minutes Exam Vital Signs Temp Pulse Resp BP Pulse Ox O2 Del Method 98 F 99 18 133/66 H 98 Room Air 05/17/25 16:00 05/17/25 16:00 05/17/25 16:00 05/17/25 16:00 05/17/25 16:00 05/17/25 16:00 Narrative Exam General: No acute distress, well nourished, AAO x3 Eye: Normal conjunctiva, no scleral icterus HENT: Normocephalic, atraumatic, hearing intact to conversation at normal volume, moist oral mucosa Neck: Supple, non-tender, no JVD, no lymphadenopathy Lungs: Non-labored respirations, symmetric chest rise, Clear to auscultate bilaterally, No wheezing, rhonchi, crackles Heart: Peripheral pulses intact bilaterally, Regular Rate and Rhythm. Abdomen: Soft, non-distended, non-tender, no palpable masses Musculoskeletal: No cyanosis or edema, No visible joint swelling Skin: Skin is warm, dry, no rashes or lesions. Psychiatric: Cooperative, appropriate mood and affect, Awake and alert, not agitated Neuro: Cranial nerves II-XII grossly intact. Strength 4/5 throughout. Sensations intact to light touch. Discharge Plan Plan Patient Disposition: HOME (Self Care) Patient condition on transfer: Stable Care Plan Goals: Please take Aspirin 81mg by mouth daily and atorvastatin 40mg tablet by mouth daily for TIA Take Percocet 5-325mg as needed up to three times a day for neuropathy - follow-up with PCP for pain management Please follow-up with Dr. Willis (Neurology) within 1-2 weeks after discharge Please follow-up with your PCP within 1 week of discharge or follow-up at the [place] [address] [place], [place] [id number] Ask your PCP to refer you to a therapist for depressive mood and continue anti-depressant as prescribed If your symptoms worsen or if you develop new chest pain, shortness of breath, dizziness or loss of consciousness - please come back to the ED immediately. Prescriptions/Referrals Prescriptions/Med Rec: New aspirin 81 mg Tablet,Delayed Release (Dr/Ec) 81 mg PO QDAY 30 Days Qty: 30 0RF atorvastatin [Lipitor] 40 mg tablet 40 mg PO HS 30 Days Qty: 30 0RF oxycodone-acetaminophen 5-325 mg tablet 1 tab PO TID MDD 15mg oxycodone PRN (Reason: pain) 3 Days Qty: 9 0RF Continued insulin glargine [Lantus Solostar U-100 Insulin] 100 unit/mL (3 mL) insulin pen 20 unit subcut QAM Qty: 15 0RF Rx Instructions: Please provide with corresponding needles and caps. metformin 1,000 mg tablet 1,000 mg PO BID Qty: 60 0RF dicyclomine 20 mg tablet 20 mg PO QID PRN (Reason: abdominal pain) Qty: 30 0RF pantoprazole [Protonix] 40 mg tablet,delayed release (DR/EC) 40 mg PO QDAY Qty: 20 0RF tamsulosin [Flomax] 0.4 mg capsule 0.4 mg PO QDAY Qty: 30 0RF Discontinued sodium chloride 1,000 mg tablet,soluble 1,000 mg PO QDAY Qty: 7 0RF Referrals: Liliana Fuentes FNP [Primary Care Provider] Nathan Willis MD [Physician, Neurology] Patient/Caregiver Discharge Instructions Education Materials: What Are Gallstones, What Is a TIA?, Benign Prostatic Hyperplasia Print Language: Mongolian Stand Alone Forms: Sanam Award Info., Patient Portal Info Letter Discharge Order Discharge Orders: Discharge (Routine); Ordered 05/17/25 Ordered By: Reynaldo Sofia Quality Discharge Quality Measures VTE prophylaxis Attestestation Attestation I attest that I was physically present for the evaluation, physical examination, lab and imaging review of the patient with the residents. I discussed the case with the residents and agree with the findings and plans of care as documented above. Melody Tomlinson MD
[2025-05-17] MEDS: INSULIN LISPRO (AdmeLOG) 1 UNIT/0.01 ML UNIT SC (17:27)
--- NOTE | 2025-05-17 17:47 | PD.RESPRO ---
Documentation for date of: 05/17/25 Subjective Subjective Interval history: Patient examined at bedside. Vitals are stable, glucose 102 this morning, A1c 6.5. No residual deficits noted on physical exam. MRI was negative for ischemic changes or hemorrhage. Echo is pending. Patient should continue aspirin 81 mg daily and atorvastatin 40 mg daily as treatment of TIA. Exam Vital Signs Temp Pulse Resp BP Pulse Ox O2 Del Method 98 F 99 18 133/66 H 98 Room Air 05/17/25 16:00 05/17/25 16:00 05/17/25 16:00 05/17/25 16:00 05/17/25 16:00 05/17/25 16:00 Narrative Exam General: No acute distress, well nourished Eye: Normal conjunctiva, no scleral icterus HENT: Normocephalic, atraumatic, hearing intact to conversation at normal volume, moist oral mucosa Neck: Supple, non-tender, no JVD, no lymphadenopathy Lungs: Non-labored respirations, symmetric chest rise, Clear to auscultate bilaterally, No wheezing, rhonchi, crackles Heart: Peripheral pulses intact bilaterally, Regular Rate and Rhythm. Abdomen: Soft, non-distended, non-tender, no palpable masses Musculoskeletal: No cyanosis or edema, No visible joint swelling Skin: Skin is warm, dry, no rashes or lesions. Psychiatric: Cooperative, appropriate mood and affect, Awake and alert, not agitated Neuro: Cranial nerves II-XII grossly intact. Strength 5/5 throughout. Sensations intact to light touch. No residual deficits noted on exam. Objective Labs 05/17/25 04:33 05/17/25 04:33 Labs: Laboratory Results - last 24 hr 05/17/25 04:33 WBC 9.8 RBC 4.28 L Hgb 12.8 L Hct 35.0 L MCV 82 MCH 29.9 MCHC 36.6 RDW Std Deviation 35.1 Plt Count 387 Neut % (Auto) 55 Lymph % (Auto) 34 Ows[place] % (Auto) 9 Eos % (Auto) 2 Baso % (Auto) 1 Neut # (Auto) 5.3 Lymph # (Auto) 3.3 [place] # (Auto) 0.8 Eos # (Auto) 0.2 Baso # (Auto) 0.1 Immature Gran # (Auto) 0.04 H Absolute Nucleated RBC 0.00 Immature Gran % 0 Nucleated RBC % 0 Sodium 135 L Potassium 3.5 Chloride 98 Carbon Dioxide 27.9 Anion Gap 9 BUN < 5 L Creatinine 0.8 Estim Creat Clear Calc 98.3 eGFR > 60 BUN/Creatinine Ratio 6 L Glucose [address] Glu mg/dL 140 H Hemoglobin A1c 6.5 H Calculated Osmolality 267 L Calcium 9.0 Corrected Calcium 9.1 Phosphorus 4.5 Magnesium 1.9 Total Bilirubin 0.6 AST 15 ALT 15 Alkaline Phosphatase 55 Total Protein 6.0 Albumin 3.9 Globulin 2.1 L Albumin/Globulin Ratio 1.9 Triglycerides 109 Cholesterol 119 L LDL Cholesterol, Calc 58 HDL Cholesterol 39 L Cholesterol/HDL Ratio 3.1 L Quality Measures Quality Measures VTE prophylaxis Assessment & Plan Assessment Current Active Medications: Generic Name Dose Route Start Last Admin Trade Name Freq PRN Reason Stop Dose Admin Acetaminophen 650 mg 05/16/25 13:47 Acetaminophen 325 Mg Tablet PO 06/15/25 13:46 Q6H PRN Fever >101.5 Acetaminophen 650 mg 05/16/25 17:17 Acetaminophen 325 Mg Tablet PO 06/15/25 13:46 Q6H PRN PAIN SCALE 1-3 (mild Al Hydrox/Mg Hydrox/Simethicone 30 ml 05/16/25 13:47 Mg Hyd/Al Hyd/[place] (Maalox Reg) Susp 30 Ml Udc PO 06/15/25 13:46 Q6H PRN Indigestion Aspirin 81 mg 05/17/25 09:00 05/17/25 09:14 Aspirin Ec 81 Mg Tabec PO 06/16/25 08:59 81 mg QDAY SIRIA Administration Atorvastatin Calcium 40 mg 05/16/25 21:00 05/16/25 20:22 Atorvastatin Calcium 20 Mg Tablet PO 06/15/25 20:59 40 mg HS SIRIA Administration Clopidogrel Bisulfate 75 mg 05/17/25 09:00 05/17/25 09:14 Clopidogrel Bisulfate 75 Mg Tablet PO 06/16/25 08:59 75 mg QDAY SIRIA Administration Dextrose 25 ml 05/16/25 20:40 Dextrose 50%-Water Inj 50 Ml Syringe IV 06/15/25 20:39 Q15MIN PRN BG 50-70 responsive npo pt Dextrose 50 ml 05/16/25 20:40 Dextrose 50%-Water Inj 50 Ml Syringe IV 06/15/25 20:39 Q15MIN PRN BG <50 OR BG <70 & pt unresponsive Escitalopram Oxalate 20 mg 05/17/25 10:15 05/17/25 11:52 Escitalopram Oxalate 10 Mg Tablet PO 06/16/25 10:14 Not Given QDAY SIRIA Gabapentin 300 mg 05/17/25 10:15 05/17/25 11:47 Gabapentin 300 Mg Capsule PO 06/16/25 10:14 300 mg QDAY SIRIA Administration Glucagon 1 mg 05/16/25 20:40 Glucagon Inj 1 Mg Vial IM Q15MIN PRN BG <70, and no IV access Insulin Degludec 20 unit 05/17/25 09:00 05/17/25 09:14 Insulin Degludec 5 Unit/0.05 Ml (Per 5 Units) SC 06/16/25 08:59 20 unit QAM SIRIA Administration Insulin Human Lispro 0 unit 05/17/25 07:30 05/17/25 17:27 Insulin Lispro (Admelog) 1 Unit/0.01 Ml Unit SC 06/16/25 07:29 1 unit AC [facility] Administration Protocol Ondansetron HCl 4 mg 05/16/25 11:39 Ondansetron Inj 2 Mg/Ml Inj 2 Ml IVP 06/15/25 11:38 Q4HR PRN NAUSEA OR VOMITING Oxycodone/Acetaminophen 1 tab 05/16/25 13:47 05/17/25 16:16 Oxycodone/Apap 5/325 Tablet PO 05/21/25 13:46 1 tab Q6H PRN Administration PAIN SCALE 4-6 (Moderate Sennosides 1 tab 05/16/25 21:00 05/17/25 09:13 Senna Tablet PO 06/15/25 20:59 1 tab BID [facility]1983 Administration Protocol Tamsulosin HCl 0.4 mg 05/17/25 09:00 05/17/25 09:13 Tamsulosin Hcl 0.4 Mg Capsule PO 06/16/25 08:59 0.4 mg QDAY [facility] Administration Plan 64-year-old male with past medical history of alcohol use disorder, HTN, HLD, and diabetes, presented to the hospital on 05/16/2025 due to right facial droop. Patient was admitted for the stroke rule out. #Right Facial droop (resolved) 2/2 #TIA #Hyperlipidemia Right-sided facial droop that started on the morning of admission. He could not move right side of his face, felt headache, hot flashes, and tingling all over his body. Teleneuro consulted at, NIHSS score 0 CT head negative for acute hemorrhage, CTA head neck negative for stenoses or LVO. MRI was negative for ischemic changes or hemorrhage. A1c 6.5, triglycerides 109, cholesterol 119, LDL 58, HDL 39. - PT ? Speech eval ? Continue aspirin 81 mg daily ? Continue atorvastatin 40 mg daily - Follow-up with neurology outpatient #Non-insulin dependent type 2 diabetes #Diabetic Neuropathy On admission initial glucose 170. A1C 6.5 on this admissin. -Held home medications -Bedside blood glucose checks ACHS -Insulin lispro sliding scale -Carb consistent low diet #Cholelithiasis #Prostamegaly Primary care team to manage above conditions and ongoing care needs. The patient's management plan was discussed with my attending physician Dr. Willis. Barbara Mcgowan, PGY-2 Attending Provider Attestation/Addendum I personally have seen and examined the patient at the bedside and I agree with resident's findings, assessment and plan of care. Patient presenting symptoms are most consistent with TIA, reassurance given to the patient regarding the negative workup. Follow-up with echo results as an outpatient. Continue with aspirin, statin and better blood sugar control. Follow-up with me in 2 weeks upon referral from his primary care physician.
== END 2025-05-17 18:48 | disposition home or self-care (01) ==
LOC: SERX 13:52 → SERHOLD 14:00 → S2SX 05-17 06:26 → SERHOLD 05-18 07:10 → S2SX 05-18 07:10 → S2NX 05-18 07:11 → S2SX 05-18 07:11
PROVIDERS: Registered Nurse General Practice; Student in an Organized Health Care Education/Training Program; Admitting Provider Student in an Organized Health Care Education/Training Program; Emergency Provider Emergency Medicine; PCP Nurse Practitioner Family; Visit Provider Student in an Organized Health Care Education/Training Program
DX: G45.9 Transient cerebral ischemic attack, unspecified (principal); R29.810 Facial weakness; E78.5 Hyperlipidemia, unspecified; I10 Essential (primary) hypertension; K59.00 Constipation, unspecified; K80.20 Calculus of gallbladder without cholecystitis without obstruction; R30.0 Dysuria; M85.80 Other specified disorders of bone density and structure, unspecified site; Z79.84 Long term (current) use of oral hypoglycemic drugs; E11.40 Type 2 diabetes mellitus with diabetic neuropathy, unspecified; N40.0 Benign prostatic hyperplasia without lower urinary tract symptoms
CPT/HCPCS: 36415; 70450; 70496; 70498; 70544; 71045; 76705; 80053; 80061; 80307; 81001; 83036; 83735; 84100; 84484; 85025; 85610; 85730; 87081; 93005; 93306; 97161; 99285; A4649; G0378; J1815; Q9967; A9270

== ENCOUNTER 2025-05-23 10:15 | Emergency (ER) | payer MEDICAID, SELFPAY ==
[2025-05-23 10:40] VITALS: BP 137/61; PULSE 85; RESP 19; TEMP 36.4; O2SAT 100; BMI 29.8
--- NOTE | 2025-05-23 11:05 | EDNOTE_ITS ---
ED Weakness RME/HPI General Chief complaint: Weakness Stated complaint: WEAK, NUMBNESS IN L) LEG SPREADING UP X 2 MOS Time Seen by Provider: 05/23/25 10:47 Arrival date/time: 05/23/25 10:15 RME / HPI RME / HPI Narrative: DR. CUELLAR MAIN ED EVALUATION: 64-year-old male with past medical history significant for hypertension, hyperlipidemia, and diabetes presenting to the Emergency Department with progressive body aches and bilateral lower extremity pain, worse over the past two months and exacerbated again since last night. The pain is primarily in the lower legs, described as severe and debilitating, making it difficult for him to walk. He also reports numbness in the left leg and both hands, as well as a numb sensation when wiping. He saw his primary care provider yesterday but has not yet been referred for further evaluation. The patient reports nausea this morning without vomiting, though he vomited once yesterday. No recent trauma, fever, chest pain, or urinary retention. Related Data Previous Rx's ?Medication ?Instructions ?Recorded insulin glargine 100 unit/mL (3 20 unit (0.2 mL) subcu t QAM #15 mL 07/06/21 mL) subcutaneous pen (Lantus Solostar U-100 Insulin) metformin 1,000 mg tablet 1,000 mg PO BID #60 tabs dicyclomine 20 mg tablet 20 mg PO QID PRN abdominal p ain 05/13/25 #30 tabs pantoprazole 40 mg tablet,delayed 40 mg PO QDAY #20 ta bs 05/13/25 release (Protonix) tamsulosin 0.4 mg capsule (Flomax) 0.4 mg PO QDAY #30 caps 05/13/25 aspirin 81 mg tablet,delayed 81 mg PO QDAY 1 month #30 tabs 05/17/25 release atorvastatin 40 mg tablet (Lipitor) 40 mg PO HS 1 bong h #30 tabs 05/17/25 Allergies Allergy/AdvReac Type Severity Reaction Status Date / Time No Known Allergies Allergy Verified 05/23/25 10:17 Review of Systems Review of Systems Systems Reviewed: All systems reviewed, normal except as documented Past Medical History Past Medical History CARDIAC: Positive Cardiac Disorders ENDOCRINE: Positive Diabetes Mellitus Type 2 Surgical History SURGICAL: Positive Joint Replacement (right leg fracture has rochelle) Social History SMOKING STATUS: Never smoker SUBSTANCE USE: does not use ALCOHOL: Never ED Exam Narrative Physical exam: Constitutional: Awake, alert, appears uncomfortable but not in acute distress. HEENT: Normocephalic, atraumatic, extraocular movements intact. Neck: Supple CV: Regular rate and rhythm, no murmurs/rubs/gallops. Lungs: Clear to auscultation bilaterally, no respiratory distress. Abd: Soft, NT, ND, no HSM noted to palpation Extremities: No deformities, no edema noted Neuro: Alert and oriented x3, decreased patellar reflexes bilaterally, decreased strength in both lower extremities, but has sensation from his lumbar and down, rectal tone normal. 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 Stat Cons 05/23/25 12:42 Active MR lumbar spine wo con Stat Exams 05/23/25 Ordered MR thoracic spine wo con Stat Exams 05/23/25 Ordered BMP [Basic Metabolic Panel] Stat Lab 05/23/25 11:26 Completed CBC Stat Lab 05/23/25 11:26 Completed Urinalysis, C/S if Indicated Stat Lab 05/23/25 11:10 Completed Dexamethasone Inj [Decadron Inj] Med 05/23/25 16:45 Discontinued 10 mg IVP X1 ONE HYDROcodone*/APAP 5/325 [Mantua 5/325] Med 05/23/25 16:45 Discontinued 1 tab PO X1 ONE Ketorolac Inj [Toradol Inj] Med 05/23/25 13:20 Discontinued 30 mg IVP X1 ONE Vital Signs Vital signs: Vital Signs Temperature 97.5 F 05/23/25 10:40 Pulse Rate 85 05/23/25 10:40 Respiratory Rate 19 05/23/25 10:40 Blood Pressure 137/61 H 05/23/25 10:40 Pulse Oximetry (%) 100 05/23/25 10:40 Oxygen Delivery Method Room Air 05/23/25 10:40 Weakness MDM Narrative MDM Narrative:: I, Aundrea Beyer, am scribing for and in the presence of Dr. Cuellar. 1243: Charge let us know we have no MRI, transfer initiated for MRI. 1400h: Spoke juan jose Ortiz regarding patient's presentation and ED course thus far. Have requested an ED to ED transfer for MRI of back to rule out cauda equina. Currently the transfer center is requesting that we speak to neurosurgery first however. Discussed case with Dr. Mills -neurosurgery on-call there. He notes that there is no defined neurosurgical issue at this point, which I agree with. Requesting MRI to be able to confirm presence of cauda equina or not. [facility] will determine if they are able to get MRI done and if so they will accept for transfer to get MRI then return to our facility for further management. 1800h: Patient is still pending MRI, not available here. Patient will be signed out to Dr. Ji pending MRI. Patient data External records reviewed:: [facility] previous records Clinical information provided by:: patient Social determinants that could affect healthcare access:: none Patient has the following chronic illnesses:: hypertension, hyperlipidemia, and diabetes How is presenting disease/condition affected by chronic disease/condition?: exacerbated by Evaluation data The following diagnostics were reviewed and interpreted by me:: lab results and radiology exam(s) Lab and/or radiology exams considered but not ordered:: none Interpretation Summary: See MDM narrative above. Medications / Prescriptions Medications or Prescriptions considered but not ordered:: none Medication administrations:: Medication Administration History Discontinued Medications Hydrocodone Bitart/Acetaminophen (Hydrocodone/Apap 5/325 Tablet) 1 tab PO X1 ONE Stop: 05/23/25 16:46 Last Admin: 05/23/25 17:42 Dose: 1 tab Documented By: ED Dexamethasone Sodium Phosphate (Dexamethasone Sod Phos Inj 10 Mg/Ml Vial) 10 mg IVP X1 ONE Stop: 05/23/25 16:46 Last Admin: 05/23/25 17:48 Dose: 10 mg Documented By: ED Ketorolac Tromethamine (Ketorolac Inj 30 Mg/Ml Vial) 30 mg IVP X1 ONE Stop: 05/23/25 13:21 Last Admin: 05/23/25 13:23 Dose: 30 mg Documented By: ED see above if any Consultations Consultation(s) initiated? (list below): Yes Consultation #1 (Physician, Specialty, Details): See MDM narrative above. Diagnosis Weakness Differential Diagnosis: other (Cauda equina syndrome, lumbar spinal stenosis, peripheral neuropathy, radiculopathy, transverse myelitis, myopathy.) Most likely diagnosis given after review of the tests above:: See MDM narrative above. Admission Indicated Admission indicated?: not indicated Explain why admission is indicated or not indicated:: Patient needs MRI and will be transferred. Admission Request Was there a request for admission?: No Disposition Plan Disposition Plan: Transfer Discharge Plan Prescriptions/Referrals Prescriptions/Med Rec: No Action insulin glargine [Lantus Solostar U-100 Insulin] 100 unit/mL (3 mL) insulin pen 20 unit subcut QAM Qty: 15 0RF Rx Instructions: Please provide with corresponding needles and caps. metformin 1,000 mg tablet 1,000 mg PO BID Qty: 60 0RF dicyclomine 20 mg tablet 20 mg PO QID PRN (Reason: abdominal pain) Qty: 30 0RF pantoprazole [Protonix] 40 mg tablet,delayed release (DR/EC) 40 mg PO QDAY Qty: 20 0RF tamsulosin [Flomax] 0.4 mg capsule 0.4 mg PO QDAY Qty: 30 0RF aspirin 81 mg Tablet,Delayed Release (Dr/Ec) 81 mg PO QDAY 30 Days Qty: 30 0RF atorvastatin [Lipitor] 40 mg tablet 40 mg PO HS 30 Days Qty: 30 0RF Referrals: Liliana Fuentes FNP [Primary Care Provider] - In 1 week Problem List Clinical Impression: Low back pain Patient/Caregiver Discharge Instructions Print Language: Romansh
[2025-05-23 11:33] LABS: Collection Type, Urine Clean Catch; Squamous Epithelial Cell,Urine 0 /hpf (0-5)
[2025-05-23 11:45] LABS: Basophils # (Auto) 0.1 Thou/mm3 (0.0-0.2); Basophils % (Auto) 0 % (0-2.5); Eosinophils # (Auto) 0.1 Thou/mm3 (0.0-0.5); Eosinophils % (Auto) 0 % (0-10); Hematocrit 35.9 % (41.0-53.0); Hemoglobin 13.4 g/dL (13.5-16.0); Immature Granulocytes Auto 0.04 Thou/mm3 (0.00-0.00); Lymphocytes # (Auto) 2.1 Thou/mm3 (1.0-4.8); Lymphocytes % (Auto) 15 % (10-50); Mean Corpuscular HGB Conc 37.3 g/dl (31.0-37.0); Mean Corpuscular Hemoglobin 30.2 pg (25.0-35.0); Mean Corpuscular Volume 81 fL (80-100); Monocytes # (Auto) 0.9 Thou/mm3 (0.0-0.8); Monocytes % (Auto) 6 % (0-12); Neutrophils # (Auto) 11.4 Thou/mm3 (1.8-7.7); Neutrophils % (Auto) 79 % (37-80); Nucleated Red Blood Cell # 0.00 Thou/mm3 (0.00-0.00); Nucleated Red Blood Cell % 0 /100 WBC (0); Platelet Count 455 Thou/mm3 (140-440); RDW Standard Deviation 34.1 fL (35.1-43.9); Red Blood Count 4.44 Miln/mm3 (4.50-5.90); White Blood Count 14.5 Thou/mm3 (3.8-10.6)
--- NOTE | 2025-05-23 11:55 | PC.NURSE ---
Pt. here from home to room 6, pt. states he has felt weakness in his legs X 2 months, pt. states he feels his feet are cold and has decreased feeling to his feet, pt. states he feels sudden warmth at times that goes from his feet up his whole body. No s/s of distress noted at this time, warm blanket and pillow given.
[2025-05-23 12:00] LABS: Anion Gap 10 (7-16); BUN/Creatinine Ratio 12 Ratio (12-20); Blood Urea Nitrogen 7 mg/dL (9-23); Calcium 9.3 mg/dL (8.3-10.6); Carbon Dioxide 22.8 mMol/L (20.0-31.0); Chloride 94 mMol/L (98-107); Creatinine (Component) 0.6 mg/dL (0.6-1.3); Estimated Creatinine Clearance 129.7 mL/min (>60); Glucose 101 mg/dL (74-106); Osmolality,Calculated 253 (275-295); Potassium 3.9 mMol/L (3.4-5.1); Sodium 127 mMol/L (136-145); eGFR > 60 See Note
[2025-05-23 12:07] LABS: Bilirubin,Urine Negative (Negative); Blood,Urine Negative (Negative); Clarity,Urine Clear (Clear/Hazy); Color,Urine Lt-Yellow (Lt Yel-Yel); Culture Indicated,Urine Not Indicated; Glucose, Urine Negative (Negative); Ketones,Urine Negative (Negative); Leukocyte Esterase,Urine Negative (Negative); Nitrite,Urine Negative (Negative); PH,Urine 6.5 (5.0-7.0); Protein,Urine Negative (Neg - Trace); RBC,Urine < 1 /hpf (0-3); Specific Gravity,Urine 1.012 (1.001-1.035); Urobilinogen,Urine Negative mg/dL (0.0-1.0); WBC,Urine < 1 /hpf (0-5)
[2025-05-23] MEDS: KETOROLAC INJ 30 MG/ML VIAL IVP (13:23)
--- NOTE | 2025-05-23 13:35 | PC.CM ---
Addendum entered by Philip Rocha RN 05/23/25 13:40: 1330- Spoke with MANDIE Machuca at [facility]. She has received packet and will review with her team, she was connected with Dr. Simpson for EMTALA questions. Awaiting for response at this time. Original Note: 1242- Received call from ER LEIGH Kimball, requesting transfer for MRI. Packet created and sent to [facility] and [facility]. Spoke to MANDIE Rosales at [facility] who connected me with their MRI department to attempt to coordinate MRI, spoke with Melina in MRI who redirected me to the transfer center as she was not able to assist with coordinating this transfer request. Message left for MANDIE Rosales at [facility] requesting review of packet sent along with request for transfer, awaiting to hear from her at this time.
--- NOTE | 2025-05-23 13:52 | PC.NURSE ---
Received call from MANDIE Machuca at [facility], patient was declined by Dr. Cleaning. Belies may be neurological issue, recommends CT and neuro eval.
--- NOTE | 2025-05-23 14:45 | PC.NURSE ---
MANDIE Rosales from [facility] called and stated they have 27 patients in line waiting for MRI exam. Patient declined at this time.
--- NOTE | 2025-05-23 16:38 | PC.NURSE ---
Dr. Simpson in talking with pt., pt. keeps walking out of his room stating he needs pain medication.
[2025-05-23 17:35] VITALS: BP 119/81; PULSE 86; RESP 16; TEMP 37.1; O2SAT 100
--- NOTE | 2025-05-23 17:35 | PC.NURSE ---
Pt. son bedside, pt. son updated per pt.'s request. Pt. son states he will be back in AM.
[2025-05-23] MEDS: HYDROcodone/APAP 5/325 TABLET 1 TAB PO (17:42)
[2025-05-23] MEDS: DEXAMETHASONE SOD PHOS INJ 10 MG/ML VIAL IVP (17:48)
--- NOTE | 2025-05-23 18:02 | PD.EDADDENDU ---
Emergency Room Addendum Addendum Narrative: 1800: Care assumed from Dr. Simpson, the previous shift emergency physician. Past medical, surgical, social and family history reviewed. Vitals and home medications reviewed. Results and treatment plan discussed. I will assume the care of the patient at this time and will follow the patient, pending transfer for MRI. Please refer to the emergency department record for history and examination from initial visit. 64yo male awaiting MRI with mild BLE weakness to r/o cord compression. No urine or stool incontinence. AM provider to follow.
[2025-05-23 18:09] VITALS: BP 131/67; PULSE 75; RESP 18; TEMP 37.2; O2SAT 98
[2025-05-23 19:54] VITALS: BP 142/96; PULSE 78; RESP 19; TEMP 36.7; O2SAT 99
[2025-05-23 21:57] VITALS: BP 149/95; PULSE 106; RESP 19; TEMP 36.4; O2SAT 96
[2025-05-24] VITALS (7 sets, daily range): BP systolic 124–152; BP diastolic 85–94; PULSE 93–110; RESP 16–19; TEMP 36.4–37; O2SAT 96–99
--- NOTE | 2025-05-24 | XR_ITS ---
Examination: MRI thoracic spine without contrast. Date and time of exam: May 24, 2025, 1230 hours INDICATIONS: Decreased sensation in the back and perianal region Technique: Multiple sagittal and axial images of the thoracic spine have been obtained. T1 weighted localizer, sagittal T2 weighted images, TR 30-50, TE 148, T1 weighted sagittal images, TR 650, TE 14, T2-weighted transverse images, TR 6770, TE 142 Findings: Adequate alignment thoracic vertebral bodies No thoracic fracture Normal marrow signal throughout the vertebral bodies No significant thoracic disc narrowing Axial images demonstrate no impingement upon the thoracic cord Impression: No thoracic fracture No focal thoracic disc protrusion There are significant cervical disc bulges C5-C6 and C6-C7, consider elective MRI cervical spine without contrast follow-up
--- NOTE | 2025-05-24 | XR_ITS ---
Examination: MRI lumbar spine without contrast Date and time of exam: May 24, 2025, 1230 hours INDICATIONS: Lower back pain radiating to the legs and numbness in the legs this week Technique: Multiple MRI axial and sagittal sections lumbar spine. Sagittal T2-weighted images, TR 3500, TE 118 T1 weighted transverse sections, TR 688 T8.5, T2-weighted sagittal sections T1 weighted sagittal sections TR 621, TE 30 T2 axial sections, TR 4, 190, TE 84. Findings: Adequate alignment lumbar vertebral bodies Transitional L5 vertebral body No lumbar fracture Marrow signal lumbar vertebral bodies L5-S1 no disc protrusion L4-L5 6 mm central lumbar disc bulge L3-L4 4 mm central lumbar disc bulge L2-L3 2 mm central lumbar disc bulge 102 mm protrusion IMPRESSION: L4-L5 6 mm central lumbar disc bulge L3-L4 4 mm central lumbar disc bulge No epidural abscess or tumor
[2025-05-24] MEDS: HYDROcodone/APAP 5/325 TABLET 1 TAB PO ×2 (07:48→14:35)
--- NOTE | 2025-05-24 14:21 | PD.EDADDENDU ---
Emergency Room Addendum Addendum Narrative: 0600h: Patient signed out to me by Dr. Ji pending MRIs this morning. 1420h: Patient's MRI thoracic and lumbar spine with no significant emergent or concerning findings. He is stable for discharge home with outpatient follow-up recommended. CT T Spine Impression: No thoracic fracture No focal thoracic disc protrusion There are significant cervical disc bulges C5-C6 and C6-C7, consider elective MRI cervical spine without contrast follow-up CT L Spine IMPRESSION: L4-L5 6 mm central lumbar disc bulge L3-L4 4 mm central lumbar disc bulge No epidural abscess or tumor
== END 2025-05-24 14:39 | disposition home or self-care (01) ==
PROVIDERS: Emergency Provider Family Medicine; PCP Nurse Practitioner Family
DX: R53.1 Weakness (principal); E11.9 Type 2 diabetes mellitus without complications; E78.5 Hyperlipidemia, unspecified; I10 Essential (primary) hypertension; Z79.4 Long term (current) use of insulin; Z79.82 Long term (current) use of aspirin; Z79.84 Long term (current) use of oral hypoglycemic drugs; Z79.899 Other long term (current) drug therapy; Z96.60 Presence of unspecified orthopedic joint implant
CPT/HCPCS: 36415; 72146; 72148; 80048; 81001; 85025; 96374; 96375; 99284; J1100; J1885; A9270

== ENCOUNTER 2025-06-20 08:24 | Emergency (ER) | payer MEDICAID, SELFPAY ==
[2025-06-20 08:25] VITALS: BP 122/82; PULSE 104; RESP 18; TEMP 36.8; O2SAT 99
--- NOTE | 2025-06-20 08:30 | PD.EDWEAK ---
ED Weakness RME/HPI General Chief complaint: Nausea/Vomiting/Diarrhea Stated complaint: NAUSEA, VOMITING Time Seen by Provider: 06/20/25 08:32 Arrival date/time: 06/20/25 08:24 RME / HPI RME / HPI Narrative: DR. COVARRUBIAS MAIN ED EVALUATION: 64-year-old male with a past medical history of hypertension, hyperlipidemia, and diabetes mellitus presents to the Emergency Department brought in by EMS for evaluation of generalized body numbness and generalized weakness for the past 4?5 days. Per EMS, the patient?s daughter called an ambulance for assistance yesterday for the same complaints, but the patient refused transport twice. Family expressed concern due to worsening weakness, nausea, poor appetite, and abdominal discomfort. The patient describes feeling as though his whole body is numb including his stomach. He also reports he has been unable to walk without a cane for the past month. He also reports that his doctor recently discontinued his diabetes medications, first metformin, then insulin, telling him he did not need them anymore. He denies fevers or chills. No vomiting. No chest pain or shortness of breath. Per EMS, the patient?s recently from diabetes, and the family believes he has been feeling depressed since her passing. Related Data Previous Rx's ?Medication ?Instructions ?Recorded insulin glargine 100 unit/mL (3 20 unit (0.2 mL) subcut QAM #15 mL 07/06/21 mL) subcutaneous pen (Lantus Solostar U-100 Insulin) metformin 1,000 mg tablet 1,000 mg PO BID #60 tabs 07/06/21 dicyclomine 20 mg tablet 20 mg PO QID PRN abdominal pain 05/13/25 #30 tabs pantoprazole 40 mg tablet,delayed 40 mg PO QDAY #20 tabs 05/13/25 release (Protonix) tamsulosin 0.4 mg capsule (Flomax) 0.4 mg PO QDAY #30 caps 05/13/25 tramadol 50 mg tablet 50 mg PO Q8H PRN pain #10 tabs 05/24/25 Allergies Allergy/AdvReac Type Severity Reaction Status Date / Time No Known Allergies Allergy Verified 05/23/25 10:17 Review of Systems Review of Systems Systems Reviewed: All systems reviewed, normal except as documented Past Medical History Past Medical History CARDIAC: Positive Cardiac Disorders, Hypercholesterolemia and Hypertension ENDOCRINE: Positive Diabetes Mellitus Type 2 Surgical History SURGICAL: Positive Joint Replacement Social History SMOKING STATUS: Never smoker SUBSTANCE USE: does not use ALCOHOL: Never ED Exam Narrative Physical exam: GENERAL APPEARANCE: alert and oriented x 4, well-developed, well-nourished, no acute distress VITALS: All vitals were reviewed and the pulse ox is 99% on room air, which is normal according to my interpretation. HEENT: Normocephalic, atraumatic; pupils equal, round, reactive to light; EOMI; mucous membranes pink, moist; oropharynx clear NECK: Supple LUNGS: CTABL; no wheezes, no rales, no rhonchi HEART: Regular rate, regular rhythm; normal S1, S2; no murmurs ABDOMEN: non distended; normal BS; soft, no tenderness, no guarding, no rebound; no masses, no organomegaly, no hernia BACK: no CVA tenderness EXTREMITIES: atraumatic; no edema NEUROLOGIC: awake; alert and oriented x4; cranial nerves II-XII grossly intact; no focal sensory or motor deficits PSYCHIATRIC: appropriate mood and affect SKIN: warm, dry, normal color; no rashes Course Quality Measures none Orders Category Date Time Status Bedside Blood Glucose NOW Care 06/20/25 08:40 Active EKG (ED ONLY) *Do not use* NOW Care 06/20/25 08:[address] head/brain wo con Stat Exams 06/20/25 08:35 Completed EKG (ED Only) Stat Exams 06/20/25 08:35 Draft XR abdomen series w chest 1V Stat Exams 06/20/25 08:35 Completed Alcohol, Blood Medical Stat Lab 06/20/25 08:58 Completed Ammonia Stat Lab 06/20/25 08:58 Completed B-Type Natriuretic Peptide Stat Lab 06/20/25 08:58 Completed CBC Stat Lab 06/20/25 08:58 Completed Comprehensive Metabolic Panel Stat Lab 06/20/25 08:58 Completed Drug Screen,Urine Stat Lab 06/20/25 11:04 Completed Lipase Stat Lab 06/20/25 08:58 Completed Magnesium Stat Lab 06/20/25 08:58 Completed Partial Thromboplastin Time Stat Lab 06/20/25 08:58 Completed Prothrombin Time with INR Stat Lab 06/20/25 08:58 Completed Troponin I Stat Lab 06/20/25 08:58 Completed UA, C/S IF [Urinalysis, C/S if Indicated] Stat Lab 06/20/25 11:04 Completed LORazepam [Ativan Inj] Med 06/20/25 11:17 Discontinued 1 mg IVP X1 ONE Magnesium Oxide [Mag-Ox 400] Med 06/20/25 13:27 Discontinued 400 mg PO X1 ONE POTASSIUM CHL 10% Liq 15 ML Med 06/20/25 11:08 Discontinued 40 meq PO X1 ONE POTASSIUM CHL 10% Liq 15 ML Med 06/20/25 13:26 Discontinued 40 meq PO X1 ONE Reevaluation(s) Reevaluation #1: Patient states he is feeling better now. Plan to discharge home. He also mentioned that he has not drank in many years. Time: 13:25 Vital Signs Vital signs: Vital Signs Temperature 98.2 F 06/20/25 08:25 Pulse Rate 104 H 06/20/25 08:25 Respiratory Rate 18 06/20/25 08:25 Blood Pressure 122/82 06/20/25 08:25 Pulse Oximetry (%) 99 06/20/25 08:25 Oxygen Delivery Method Room Air 06/20/25 08:25 Weakness MDM Narrative MDM Narrative:: I, Aundrea Beyer, am scribing for and in the presence of Dr. Covarrubias. Patient data External records reviewed:: [facility] previous records and EMS form Clinical information provided by:: patient and EMS Social determinants that could affect healthcare access:: none Patient has the following chronic illnesses:: hypertension, hyperlipidemia, and diabetes mellitus How is presenting disease/condition affected by chronic disease/condition?: exacerbated by Evaluation data The following diagnostics were reviewed and interpreted by me:: lab results, radiology exam(s) and EKG tracing(s) (My interpretation: EKG performed at 1046 hours, sinus rhythm, rate 96, notched P wave, slight elevation in V4-V6, no reciprocal depressions) Lab and/or radiology exams considered but not ordered:: none Interpretation Summary: Procedure(s): XR abdomen series w chest 1V Accession Number(s): [id number] cc: Sunny Sellers MD; NO PRIMARY/FAMILY,PHYSICIAN; Breann Covarrubias MD~ Examination chest single view TECHNIQUE: AP portable semiupright chest single view Date and time: June 20, 2025, 10:11 a.m. INDICATIONS: Nausea vomiting today. FINDINGS: Normal heart size The lungs are clear. The osseous structures are intact IMPRESSION: No active disease Dictated By: Sunny Sellers MD Procedure(s): CT head/brain wo con Accession Number(s): [id number] cc: Sunny Sellers MD; NO PRIMARY/FAMILY,PHYSICIAN; Breann Covarrubias MD~ Examination: CT brain head without contrast. 2-D sagittal coronal reconstructions Date and time of exam: June 20, 2025, 0931 hours INDICATIONS: Weakness paresthesias today COMPARISON: May 16, 2025 CTDI: vol (mGy): 52.1 DLP: (mGycm): 1000 Technique: Multiple CT axial sections of the brain have been obtained, 5 mm slice thickness. Contrast has not been administered. 2-D sagittal, coronal reconstructions have been obtained Low dose protocols were performed. One or more of the following dose reduction techniques were used; automated exposure control, adjustment of the mA and/or KV according to patient size, use of iterative reconstruction technique. Findings: No significant ventricular enlargement. Intra-axial or extra-axial hemorrhage density is not seen. No mass effect or midline shift Basal cisterns are not remarkable. Fourth ventricle is midline. Cranial vault intact. Significant left ethmoid and left maxillary sinusitis Prominent hypertrophy inferior nasal turbinates Impression: Negative for acute hemorrhage, mass effect or midline shift Advise clinical correlation and follow-up accordingly Dictated By: Sunny Sellers MD Medications / Prescriptions Medications or Prescriptions considered but not ordered:: none Medication administrations:: Medication Administration History Discontinued Medications Lorazepam (Lorazepam 2 Mg/Ml Vial) 1 mg IVP X1 ONE Stop: 06/20/25 11:18 Last Admin: 06/20/25 11:27 Dose: 1 mg Documented By: EF Magnesium Oxide (Magnesium Oxide 400 Mg Tablet) 400 mg PO X1 ONE Stop: 06/20/25 13:28 Potassium Chloride (Potassium Chloride 10% 20 Meq/15 Ml Udc) 40 meq PO X1 ONE Stop: 06/20/25 11:09 Last Admin: 06/20/25 11:27 Dose: 40 meq Documented By: EF Potassium Chloride (Potassium Chloride 10% 20 Meq/15 Ml Udc) 40 meq PO X1 ONE Stop: 06/20/25 13:27 see above if any Consultations Consultation(s) initiated? (list below): No Diagnosis Weakness Differential Diagnosis: other (Diabetic neuropathy, metabolic derangement (hyperglycemia or electrolyte imbalance), and depression-related functional weakness.) Most likely diagnosis given after review of the tests above:: Paresthesia Hypokalemia Admission Indicated Admission indicated?: not indicated Admission Request Was there a request for admission?: No Disposition Plan Disposition Plan: Discharge Discharge Attestation Discharge Attestation: The patient and all family members were given an opportunity to ask questions and understood the discharge instructions. Discharge instructions specifically effects, indications for sooner follow up or return to the emergency department, and the expected course of current diagnosis. Patient condition: Stable Discharge Plan Plan Patient Disposition: HOME (Self Care) Prescriptions/Referrals Prescriptions/Med Rec: No Action insulin glargine [Lantus Solostar U-100 Insulin] 100 unit/mL (3 mL) insulin pen 20 unit subcut QAM Qty: 15 0RF Rx Instructions: Please provide with corresponding needles and caps. metformin 1,000 mg tablet 1,000 mg PO BID Qty: 60 0RF dicyclomine 20 mg tablet 20 mg PO QID PRN (Reason: abdominal pain) Qty: 30 0RF pantoprazole [Protonix] 40 mg tablet,delayed release (DR/EC) 40 mg PO QDAY Qty: 20 0RF tamsulosin [Flomax] 0.4 mg capsule 0.4 mg PO QDAY Qty: 30 0RF tramadol 50 mg tablet 50 mg PO Q8H PRN (Reason: pain) Qty: 10 0RF Referrals: No Primary/Family,Physician [Primary Care Provider] - In 1 week Problem List Clinical Impression: Paresthesia, Hypokalemia Patient/Caregiver Discharge Instructions Education Materials: ED Hypokalemia, ED Paraesthesias Print Language: Bulgarian Stand Alone Forms: San[facility] Award Info., Patient Portal Info Letter
--- NOTE | 2025-06-20 08:35 | EKG_ITS ---
[facility] Test Date: 2025-06-20 Pat Name: BRANDI ORTIZ Department: Room: - Gender: Male Fence Installer: : 1960 Requested By: Breann Delgado Order Number: [id number] Reading MD: Breann Delgado Measurements Intervals [place] Rate: 96 P: 45 UT: 140 QRS: 70 QRSD: 79 T: 49 QT: 356 QTc: 452 Interpretive Statements SINUS RHYTHM Compared to ECG 05/16/2025 12:27:52 No significant changes /store/S0/[id number].pdf
--- NOTE | 2025-06-20 08:35 | XR_ITS ---
Examination chest single view TECHNIQUE: AP portable semiupright chest single view Date and time: June 20, 2025, 10:11 a.m. INDICATIONS: Nausea vomiting today. FINDINGS: Normal heart size The lungs are clear. The osseous structures are intact IMPRESSION: No active disease
--- NOTE | 2025-06-20 08:35 | XR_ITS ---
Examination: CT brain head without contrast. 2-D sagittal coronal reconstructions Date and time of exam: June 20, 2025, 0931 hours INDICATIONS: Weakness paresthesias today COMPARISON: May 16, 2025 CTDI: vol (mGy): 52.1 DLP: (mGycm): 1000 Technique: Multiple CT axial sections of the brain have been obtained, 5 mm slice thickness. Contrast has not been administered. 2-D sagittal, coronal reconstructions have been obtained Low dose protocols were performed. One or more of the following dose reduction techniques were used; automated exposure control, adjustment of the mA and/or KV according to patient size, use of iterative reconstruction technique. Findings: No significant ventricular enlargement. Intra-axial or extra-axial hemorrhage density is not seen. No mass effect or midline shift Basal cisterns are not remarkable. Fourth ventricle is midline. Cranial vault intact. Significant left ethmoid and left maxillary sinusitis Prominent hypertrophy inferior nasal turbinates Impression: Negative for acute hemorrhage, mass effect or midline shift Advise clinical correlation and follow-up accordingly
[2025-06-20 08:37] VITALS: PULSE 114; RESP 20; O2SAT 97; BMI 27.9
[2025-06-20 09:20] LABS: Basophils # (Auto) 0.0 Thou/mm3 (0.0-0.2); Basophils % (Auto) 0 % (0-2.5); Eosinophils # (Auto) 0.1 Thou/mm3 (0.0-0.5); Eosinophils % (Auto) 1 % (0-10); Hematocrit 37.8 % (41.0-53.0); Hemoglobin 14.1 g/dL (13.5-16.0); Immature Granulocytes Auto 0.02 Thou/mm3 (0.00-0.00); Lymphocytes # (Auto) 2.4 Thou/mm3 (1.0-4.8); Lymphocytes % (Auto) 26 % (10-50); Mean Corpuscular HGB Conc 37.3 g/dl (31.0-37.0); Mean Corpuscular Hemoglobin 29.6 pg (25.0-35.0); Mean Corpuscular Volume 79 fL (80-100); Monocytes # (Auto) 0.8 Thou/mm3 (0.0-0.8); Monocytes % (Auto) 8 % (0-12); Neutrophils # (Auto) 6.0 Thou/mm3 (1.8-7.7); Neutrophils % (Auto) 64 % (37-80); Nucleated Red Blood Cell # 0.00 Thou/mm3 (0.00-0.00); Nucleated Red Blood Cell % 0 /100 WBC (0); Platelet Count 371 Thou/mm3 (140-440); RDW Standard Deviation 34.1 fL (35.1-43.9); Red Blood Count 4.76 Miln/mm3 (4.50-5.90); White Blood Count 9.3 Thou/mm3 (3.8-10.6)
[2025-06-20 09:29] LABS: INR 1.1 (0.9-1.3); Partial Thromboplastin Time 26.5 Seconds (22.0-36.0); Prothrombin Time 11.4 Seconds (9.0-12.2)
[2025-06-20 09:47] LABS: Alanine Aminotransferase 18 U/L (10-49); Albumin, Serum 4.5 gm/dL (3.4-4.8); Albumin/Globulin Ratio 2.0 (1.2-2.2); Alcohol, Blood Medical < 3.0 mg/dL (0-10.0); Alkaline Phosphatase 67 U/L (46-116); Ammonia < 10 uMol/L (11-32); Anion Gap 10 (7-16); Aspartate Amino Transferase 15 U/L (0-34); BUN/Creatinine Ratio 7 Ratio (12-20); Bilirubin,Total 1.0 mg/dL (0.3-1.2); Blood Urea Nitrogen < 5 mg/dL (9-23); Calcium 9.7 mg/dL (8.3-10.6); Calcium (Corrected) 9.7 mg/dL (8.5-10.1); Carbon Dioxide 26.9 mMol/L (20.0-31.0); Chloride 97 mMol/L (98-107); Creatinine (Component) 0.7 mg/dL (0.6-1.3); Estimated Creatinine Clearance 107.9 mL/min (>60); Globulin 2.2 gm/dL (2.3-3.5); Glucose 165 mg/dL (74-106); Lipase 25 U/L (12-53); Magnesium 1.6 mg/dL (1.6-2.6); Osmolality,Calculated 269 (275-295); Potassium 2.9 mMol/L (3.4-5.1); Sodium 134 mMol/L (136-145); Total Protein 6.7 gm/dL (5.7-8.2); Troponin I < 0.020 ng/mL (0.0-0.045); eGFR > 60 See Note
[2025-06-20 10:00] LABS: B-Type Natriuretic Peptide < 20 pg/mL (0-100)
[2025-06-20 10:25] VITALS: BP 124/82; PULSE 103; RESP 24; TEMP 37.1; O2SAT 100
[2025-06-20 11:18] LABS: Collection Type, Urine Clean Catch; Squamous Epithelial Cell,Urine 0 /hpf (0-5)
[2025-06-20] MEDS: LORazepam 2 MG/ML VIAL 1 MG IVP (11:27)
[2025-06-20] MEDS: POTASSIUM CHLORIDE 10% 20 MEQ/15 ML UDC 40 MEQ PO ×2 (11:27→13:39)
[2025-06-20 11:44] LABS: Amphetamine/Methamp Scrn,U Negative (Negative); Barbiturate Screen,Urine Negative (Negative); Benzodiazepines Screen,Urine Negative (Negative); Benzoylecgonine Screen, Ur Negative (Negative); Fentanyl Screen,Urine Negative (Negative); Opiate Screen,Urine Negative (Negative); THC Screen,Urine Negative (Negative)
[2025-06-20 12:00] VITALS: BP 134/94; PULSE 98; RESP 15; TEMP 36.9; O2SAT 98
[2025-06-20 12:01] LABS: Bilirubin,Urine Negative (Negative); Blood,Urine Negative (Negative); Clarity,Urine Clear (Clear/Hazy); Color,Urine Lt-Yellow (Lt Yel-Yel); Culture Indicated,Urine Not Indicated; Glucose, Urine 3+ (Negative); Ketones,Urine Negative (Negative); Leukocyte Esterase,Urine Negative (Negative); Nitrite,Urine Negative (Negative); PH,Urine 7.5 (5.0-7.0); Protein,Urine Negative (Neg - Trace); RBC,Urine 1 /hpf (0-3); Specific Gravity,Urine 1.007 (1.001-1.035); Urobilinogen,Urine 2.0 mg/dL (0.0-1.0); WBC,Urine 1 /hpf (0-5)
[2025-06-20] MEDS: MAGNESIUM OXIDE 400 MG TABLET PO (13:39)
[2025-06-20 14:09] VITALS: BP 149/95; PULSE 88; RESP 15; O2SAT 97
== END 2025-06-20 14:20 | disposition home or self-care (01) ==
PROVIDERS: Emergency Provider Emergency Medicine
DX: R19.7 Diarrhea, unspecified (principal); R11.2 Nausea with vomiting, unspecified; I10 Essential (primary) hypertension; E87.6 Hypokalemia; E11.9 Type 2 diabetes mellitus without complications; E78.5 Hyperlipidemia, unspecified; Z79.4 Long term (current) use of insulin; Z79.84 Long term (current) use of oral hypoglycemic drugs; Z79.899 Other long term (current) drug therapy
CPT/HCPCS: 36415; 70450; 74022; 80053; 80307; 80320; 81001; 82140; 83690; 83735; 83880; 84484; 85025; 85610; 85730; 93005; 96374; 99284; J2060; A9270; G0480